=== PATIENT | male | born 1995 | race Caucasian/White ===

== ENCOUNTER 2023-02-02 16:39 | Emergency (ER) | payer OTHER, SELFPAY ==
[2023-02-02 16:40] VITALS: BP 141/100; PULSE 83; RESP 18; TEMP 36.3; O2SAT 98; BMI 33.4
--- NOTE | 2023-02-02 17:18 | EKG12_ITS ---
Test Reason : CHST PAIN Blood Pressure : / mmHG Vent. Rate : 086 BPM Atrial Rate : 086 BPM P-R Int : 148 ms QRS Dur : 092 ms QT Int : 356 ms P-R-T Axes : 047 051 038 degrees QTc Int : 426 ms Normal sinus rhythm with sinus arrhythmia Normal ECG Confirmed by ALONDRA PINTO, MIRIAN ([id number]), editor newspaper GRACE ENRIQUEZ ([id number]) on 02/07/2023 7:56:55 AM Referred By: Confirmed By:MIRIAN CANTU MD
--- NOTE | 2023-02-02 17:18 | EDS_ITS ---
HPI History of Present Illness Chief Complaint: Chest Pain Informant: patient and spouse/S.O. Narrative Narrative: Patient presents after an episode of chest discomfort. Patient has had an episode like this in the past with no known cause after evaluation. He was feeling fine. He went upstairs to play guitar which he does daily. He states the strap of the guitar was rubbing on the right side of his chest. He states he really never had chest pain but it just felt like the right side of his chest was bal[place]. Like the strap was putting more pressure or rubbing more than normal. Again he never had chest pain with this. Other than those symptoms he had no other symptoms such as nausea vomiting shortness of breath or diaphoresis at the time. Shortly after this. He was getting out of the shower. He then got lightheaded. He felt like he turned white. He broke out into a sweat. He thought he was going to pass out. This lasted for a few minutes. After that he was tired and took a nap. He is now feeling better. He still feels like the right side of his chest is baltazar than the left but no pain. He did not actually have any chest pain during the lightheaded episode as above. He is on Adderall but this is not new. He smokes medical or marijuana. He does not drink. He has no blood pressure diabetes cholesterol family history of heart disease. No recent travel surgery or immobilization personal or family history of DVT or PE. No hemoptysis cough or dyspnea. No leg pain or swelling. [facility] Medical History ADHD Fxyy-Nacvr-Fmxzdil disease, bilateral Home Medications dextroamphetamine-amphetamine 5 mg tablet (Adderall) 5 mg PO DAILY 02/02/23 [His tory Last Taken Unknown] Allergy/AdvReac Type Severity Reaction Status Date / Time No Known Allergies Allergy Verified 02/02/23 16:42 Social History Smoking Status: Current some day smoker tobacco type: cigarettes ROS ROS ED ROS Narrative A complete review of systems was performed and is negative except as documented in the history of present illness. Some specific details below. Constitutional: No recent fevers or chills. He felt fine until this event and he felt fine afterwards. EYE: No discharge, visual complaints, or pain. ENT: No difficulty swallowing. No swelling. No pain. No reflux symptoms. No history of reflux. CV: See history of present illness. Respiratory: Not short of breath or coughing. No hemoptysis. GI: No abdominal pain. No nausea vomiting diarrhea. No blood in stool. : No frequency dysuria or hematuria. Musculoskeletal: No recent trauma. No pains. No swelling. Skin: No rash. Nondiaphoretic. Neuro: No weakness or numbness. Endocrine: No polyuria or polydipsia. EXAM Physical Exam Narrative Exam Narrative: CONSTITUTIONAL: Patient is nontoxic in appearance. The patient looks comfortable. Work of breathing looks normal. HEENT: No notable trauma. Mucous membranes moist. No sinus tenderness. No indication of pain with swallowing. EYES: No conjunctival injection. No proptosis. NECK:No JVD. No stridor. CARDIOVASCULAR: Regular rate. Regular rhythm. No notable murmur. No JVD. Peripheral pulses are normal x4. RESPIRATORY: No respiratory distress. Breathing is unlabored. No wheezes. No rhonchi. No rales. No pain with a deep breath. He has mild discomfort or different sensation with palpation of the right pectoralis region. But I feel no mass or lymphadenopathy. No rash. No warmth or erythema. GASTROINTESTINAL: Not distended. Bowel sounds are normal. No tenderness. No guarding. No rebound. No palpable mass. No bruit is heard. GENITOURINARY: No tenderness over the bladder. No CVA tenderness. MUSCULOSKELETAL: Atraumatic. No peripheral edema. No cord. No tenderness along the deep venous system. No asymmetry. No distended veins. NEUROLOGICAL: Patient is alert and appropriate. No focal deficit noted. SKIN: No noted rashes. No diaphoresis. PSYCHIATRIC: Patient is calm. Mood is appropriate. Const Vital Signs: 02/02/23 16:40 02/02/23 16:53 02/02/23 17:18 Temperature 97.3 F L Temperature Source Temporal Pulse Rate 83 Respiratory Rate 18 Respiratory Effort Normal Non-Labored Blood Pressure 141/100 H Blood Pressure Mean 113 Pulse Ox 98 Oxygen Delivery Method Room Air Room Air 02/02/23 17:31 02/02/23 18:00 02/02/23 19:40 Temperature Temperature Source Pulse Rate 86 82 73 Respiratory Rate 21 H 26 H 20 H Respiratory Effort Blood Pressure 132/76 H 131/71 H 128/77 H Blood Pressure Mean 94 91 94 Pulse Ox 95 95 95 Oxygen Delivery Method Room Air Room Air Room Air MDM MDM MDM Narrative Medical decision making narrative: Patient's CBC is normal. Patient's electrolytes are normal. Patient's first troponin is normal at 7. Patient's repeat troponin has dropped to 6. My independent interpretation of the patient's single AP chest x-ray shows no acute process. Final reading is normal x-ray examination of the chest. Patient's symptoms are gone. He has had these before. He is a low risk. He is asymptomatic now. He has 2 negative troponins. I think he is safe for discharge. We have recommended follow-up. Lab Data Attestation: I reviewed the patient's lab results. Labs: Laboratory Results - last 24 hr 02/02/23 02/02/23 17:16 19:00 WBC 9.0 RBC 4.92 Hgb 14.3 Hct 43.6 MCV 88.6 MCH 29.1 MCHC 32.8 RDW Std Deviation 40.8 RDW Coeff of Rosina 12.6 Plt Count 194 MPV 9.2 Immature Gran % (Auto) 0.300 Neut % (Auto) 65.0 Lymph % (Auto) 23.2 [place] % (Auto) 10.6 H Eos % (Auto) 0.7 Baso % (Auto) 0.2 Absolute Neuts (auto) 5.9 Absolute Lymphs (auto) 2.09 Nucleated RBC % 0 Sodium 139 Potassium 3.8 Chloride 107 Carbon Dioxide 29.0 Anion Gap 3 L BUN 18 Creatinine 0.92 Estim Creat Clear Calc 125.05 Est GFR (MDRD) Af Amer 124 Est GFR (MDRD) Non-Af 102 BUN/Creatinine Ratio 19.5 Glucose 109 H Calcium 8.9 Troponin I High Sens 7 6 Radiography Diagnostic Testing: Clinical Impression(s) from Imaging Studies Chest X-Ray 02/02/23 17:30 IMPRESSION: Normal x-ray examination of the chest. Electronically Signed: Liborio Meza MD at 17:45 EDT Reading Location ID and State: [facility] / [place] Tel [phone], Service support , EKG Initial EKG: Comments: My independent interpretation of the patient's EKG shows a normal sinus rhythm with overall rate of 86. No ectopy. No acute ST elevation or depression. No sign of acute infarct or ischemia. MO, QRS duration and QTc are normal. Discharge Plan Triage Chief Complaint: Chest Pain ED Provider: Chencho Ruiz Dx/Rx/DC Orders Clinical Impression: Chest pain Instructions: ED Pain, Acute, Uncertain Cause Prescriptions: No Action dextroamphetamine-amphetamine [Adderall] 5 mg tablet 5 mg PO DAILY Primary Care Provider: Can Reynolds Referrals: Can Reynolds MD [Primary Care Provider] - 3-5 Days Disposition Disposition: Home, Self Care Discharge Date/Time: 02/02/23 20:01
--- NOTE | 2023-02-02 17:30 | RAD_ITS ---
STUDY: X-RAY CHEST REASON FOR EXAM: Male, 28 years old. chest pain TECHNIQUE: AP COMPARISON: None. FINDINGS: The lungs are clear and expanded. There is no demonstrated pleural abnormality. Normal size heart. Normal mediastinum and den. Normal visualized pulmonary arteries. Normal visualized aortic arch and descending thoracic aorta. Normal visualized thoracic spine. Normal visualized ribs, clavicles, and shoulders. There is no demonstrated abnormality of the visualized soft tissue structures of the upper abdomen. RAD/Chest 1 View (Portable) IMPRESSION: Normal x-ray examination of the chest. Electronically Signed: Liborio Meza MD at 17:45 EDT ,
[2023-02-02 17:31] VITALS: BP 132/76; PULSE 86; RESP 21; O2SAT 95
[2023-02-02 17:40] LABS: Absolute Lymphocyte Count 2.09 X10^3/uL (0.83-4.51); Absolute Neutrophil Count 5.9 X10^3/uL (2.0-7.7); Basophil# 0.02 X10^3/uL; Basophil% 0.2 % (0-1); Eosinophil# 0.06 X10^3/uL; Eosinophils% 0.7 % (0-5); Hematocrit 43.6 % (40-54); Hemoglobin 14.3 g/dL (13.0-16.5); Lymphocyte # 2.09 X10^3/ul (0.83-4.51); Lymphocyte % 23.2 % (19-41); Mean Corp Hgb Conc 32.8 g/dL (32-36); Mean Corpuscular Hgb 29.1 pg (27.0-32.0); Mean Corpuscular Volume 88.6 fL (80-94); Mean Platelet Vol. 9.2 fl (6.2-12.0); Monocyte# 0.96 X10^3/uL; Monocyte% 10.6 % (0-10); NRBC Flagged by Analyzer 0 % (0-5); Neutrophil # 5.86 X10^3/uL (2.7-7.7); Platelet Count 194 K/mm3 (150-450); RBC Distribution Width CV 12.6 % (11.6-14.6); RBC Distribution Width SD 40.8 fl (35.1-43.9); Red Blood Count 4.92 M/mm3 (4.6-6.2)
[2023-02-02 17:48] LABS: Anion Gap 3 (5-15); BUN 18 mg/dL (7-18); BUN/Creat Ratio 19.5 RATIO (10-20); Calcium,Total 8.9 mg/dL (8.5-10.1); Chloride 107 mmol/L (98-107); Creatinine, Serum 0.92 mg/dL (0.70-1.30); EST Glomerular Filtration Rate 102 mL/min (>60); Est Glom Filt Rate - Afr Amer 124 mL/min (>60); Estimated Creatinine Clearance 125.05 ml/min; Glucose 109 mg/dL (74-106); Potassium 3.8 mmol/L (3.5-5.1); Sodium Level 139 mmol/L (136-145); Troponin-I HS (w/2H Reflex) 7 pg/mL (3.0-78.0)
[2023-02-02 18:00] VITALS: BP 131/71; PULSE 82; RESP 26; O2SAT 95
[2023-02-02 19:02] LABS: Reflex Troponin-HS? (from REC) Y
[2023-02-02 19:21] LABS: Troponin-I HS 6 pg/mL (3.0-78.0)
[2023-02-02 19:40] VITALS: BP 128/77; PULSE 73; RESP 20; O2SAT 95
== END 2023-02-02 20:01 | disposition home or self-care (01) ==
PROVIDERS: Emergency Provider Emergency Medicine; PCP Family Medicine; Visit Provider Emergency Medicine
DX: R07.9 Chest pain, unspecified (principal); F17.210 Nicotine dependence, cigarettes, uncomplicated; F90.9 Attention-deficit hyperactivity disorder, unspecified type; Z79.899 Other long term (current) drug therapy
CPT/HCPCS: 71045; 80048; 84484; 85025; 93005; 99284; A4216

== ENCOUNTER → 2023-06-26 | Outpatient (CLI) | payer OTHER, SELFPAY ==
[2023-06-26 18:39] LABS: Vitamin B12 445 pg/mL (211-911); Vitamin D,25 Hydroxy 26.6 ng/mL
--- OUTSIDE RECORDS SUMMARY | 2023-06-26 18:50 | XMS RPT_ITS | CCD ---
Author Name Unknown Address [address] [place] [address] Organization [facility] Care Team Providers Care Spool Salvager Name Role Phone Missael Abarca Attending Unavailable LISHNEVSKI, ALEXIA Referring Unavailable LISHNEVSKI, ALEXIA Primary Care Unavailable IMCA Referring Unavailable LISHNEVSKI, ALEXIA Primary Care Unavailable IMCA Referring Unavailable LISHNEVSKI, ALEXIA Primary Care Unavailable LISHNABISKI, ALEXIA Attending Unavailable IMCA Referring Unavailable Pending Provider Unavailable Unavailable Unavailable Unavailable Leighton Reynolds MD Primary Care Provider [phone] Leighton Reynolds MD Primary Care Provider Leighton Reynolds MD Primary Care Provider [phone] Unavailable Unavailable Amanuel Oneal Attending Unavailable Amanuel Oneal Referring Unavailable Pending, Provider Primary Care Unavailable MARIEL UP Attending Unavailabl e MARIEL UP Referring Unavailabl e Pending, Provider Primary Care Unavailable Amanuel Oneal Attending Unavailable Pending, Provider Primary Care Unavailable Leighton Reyonlds MD Primary Care Provider Leighton Reynolds Primary Care Provider REUBEN, ALEXJOE Attending Unavailable TOROI, ALEXIA Referring Unavailable REUBEN, ALEXIA Primary Care Unavailable LEIGHTON REYNOLDS Attending Unavailable LEIGHTON REYNOLDS Primary Care Unavailable LEIGHTON REYNOLDS Unavailable LEIGHTON REYNOLDS Primary Care Unavailable Allergies Allergy Classification Reported Allergen(s) Allergy Type Date of Onset Reaction(s) Facility (20 sources) Morphine; Translations: [MORPHINE] Drug Allergy 0 Intolerance, Nausea And Vomiting [facility] Repository Medications Current Medications Medication Drug Class(es) Dates Sig (Normalized) Sig (Original) amoxicillin 875 mg / clavulanate 125 mg oral tablet (1 source) Penicillin-class Antibacterial Start: 04-05-2022 End: 04-12-2022 take 1 tablet by mouth every twelve hours Amoxicillin-Pot Clavulanate 875-125 MG Oral Tablet TAKE 1 TABLET EVERY 12 HOURS UNTIL GONE. Quantity: 14 Refills: 0 Ordered: 05-Apr-2022 Mariel Up DO Start : 05-Apr-2022 End : 12-Apr-2022 Active amphetamine aspartate 1.25 mg / amphetamine sulfate 1.25 mg / dextroamphetamine saccharate 1.25 mg / dextroamphetamine sulfate 1.25 mg oral tablet (20 sources) Central Nervous System Stimulant Start: 05-23-2023 End: 06-22-2023 take 1 tablet by mouth once daily as needed dextroamphetamin e-amphetamine (ADDERALL) 5 mg tablet Indications: Attention deficit disorder (ADD) in adult Take 1 tablet by mouth once daily as needed for up to 30 days. 30 tablet 0 05/23/2023 06/22/2023 Active Completed/Discontinued Medications Medication Drug Class(es) Dates Sig (Normalized) Sig (Original) Amphetamine / Dextroamphetamine (2 sources) Central Nervous System Stimulant Adderall TABS Quantity: 0 Refills: 0 Ordered: 19-May-2021 DO Active Problems Active Problems Problem Classification Problem Date Documented Da te Episodic/Chronic Abdominal pain (6 sources) Left upper quadrant pain; Translations: [Unspecified abdominal pain] Onset: 9 Episodic Allergic reactions (2 sources) Allergy status to narcotic agent status; Translations: [Allergy status to narcotic agent status] Onset: 9 Episodic Contraceptive and procreative management (1 source) Patient encounter status; Translations: [Encounter for other general counseling and advice on procreation] Episodic Diabetes mellitus without complication (2 sources) Impaired fasting glucose; Translations: [Impaired fasting glucose] Onset: 3 Episodic Disorders usually diagnosed in infancy, childhood, or adolescence (20 sources) Adult attention deficit hyperactivity disorder ; Translations: [Other specified behavioral and emotional disorders with onset usually occurring in childhood and adolescence] Onset: 1 Chronic Malaise and fatigue (1 source) Fatigue; Translations: [Other fatigue] 06-08-2023 Episodic Other acquired deformities (2 sources) Other specified acquired deformities of left thigh; Translations: [Other specified acquired deformities of left thigh] Onset: 9 Episodic Other aftercare (2 sources) Marijuana user; Translations: [Other accountant assistant (current) drug therapy] Onset: 3 01-23-2023 Episodic Other aftercare (2 sources) Other accountant assistant (current) drug therapy; Translations: [Other skilled nursing (current) drug therapy] Onset: 3 Episodic Other bone disease and musculoskeletal deformities (2 sources) 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], left leg; Translations: [Juvenile osteochondrosis of head of femur, left leg] Onset: 9 Chronic Other bone disease and musculoskeletal deformities (20 sources) Juvenile osteochondrosis of lower extremity; Translations: [Juvenile osteochondrosis of head of femur [Fjfa-Nuqec-Aciaqex], left leg] Onset: 3 07-02-2018 Chronic Other connective tissue disease (2 sources) Hand pain; Translations: [Pain in limb] Episodic Other nutritional; endocrine; and metabolic disorders (20 sources) Obese class I; Translations: [Obesity, unspecified] Onset: 2 06-24-2021 Chronic Other skin disorders (1 source) Lesion of skin of foot; Translations: [Unspecified disorder of skin and subcutaneous tissue] Episodic Phlebitis; thrombophlebitis and thromboembolism (2 sources) Phlebitis; Translations: [Phlebitis and thrombophlebitis of unspecified site] Episodic Unclassified (2 sources) Juvenile osteochondrosis of head of femur (lkin-zfkve-awtuucg), left leg Onset: 9 Past or Other Problems Problem Classification Problem Date Documented Da te Episodic/Chronic Mood disorders (2 sources) Mood disorders Onset: 01-23-2023 01-23-2023 Other connective tissue disease (4 sources) Pain in right hand; Translations: [Pain in right hand] Onset: 05-19-2021 Episodic Results Test Name Value Interpretation Reference Range Facil ity Vital Signs Date Time Vital Sign Value Performing Clinician Faci lity 01-23-2023 14:59-0400 Body height 180.3 cm Dedra Enriquez MD Work Phone: [facility] [employer] 01-23-2023 14:59-0400 Body mass index (BMI) [Ratio] 32.99 kg/m2 Dedra Enriquez MD Work Phone: [facility] [employer] 01-23-2023 14:59-0400 Body temperature 97 [degF] Dedra Enriquez MD Work Phone: [facility] [employer] 01-23-2023 14:59-0400 Body weight 107.28 kg Dedra Enriquez MD Work Phone: [facility] [employer] 01-23-2023 14:59-0400 Diastolic blood pressure 70 mm[Hg] Dedra Enriquez MD Work Phone: [facility] [employer] 01-23-2023 14:59-0400 Heart rate 65 /min Dedra Enriquez MD Work Phone: [facility] [employer] 01-23-2023 14:59-0400 Systolic blood pressure 135 mm[Hg] Dedra Enriquez MD Work Phone: [facility] [employer] 04-05-2022 17:51-0500 Body mass index (BMI) [Ratio] 31.87 kg/m2 Marielprachi Up DO Work Phone: [facility] Work Phone: 04-05-2022 17:51-0500 Body surface area Derived from formula 2.28 m2 Mariel Up DO Work Phone: [facility] Work Phone: 04-05-2022 17:51-0500 Body temperature 98.2 [degF] Marielprachi Up DO Work Phone: [facility] Work Phone: 04-05-2022 17:51-0500 Body weight 106.6 kg Marielprachi HunterAnnel DO Work Phone: [facility] Work Phone: 04-05-2022 17:51-0500 Diastolic blood pressure 63 mm[Hg] Mariel Annel DO Work Phone: [facility] Work Phone: 04-05-2022 17:51-0500 Heart rate 67 /min Mariel Annel DO Work Phone: [facility] Work Phone: 04-05-2022 17:51-0500 Respiratory rate 16 /min Mariel Annel DO Work Phone: [facility] Work Phone: 04-05-2022 17:51-0500 SaO2% (BldA) [Mass fraction] 98 % Marielkim HunterAnnel DO Work Phone: [facility] Work Phone: 04-05-2022 17:51-0500 Systolic blood pressure 131 mm[Hg] Marielkim HutnerAnnel DO Work Phone: [facility] Work Phone: 04-05-2022 17:51-0500 0 1 Marielkim HunterAnnel DO Work Phone: [facility] Work Phone: Encounters Encounter Date Encounter Type Care Provider Facility Start: 06-07-2023 Get Medical Advice Leighton jacques MD Work Phone: [facility] Procedures Date Procedure Procedure Detail Performing Clinician Start: 01-23-2023 Adult depression screening assessment Dedra Enriquez MD Work Phone: Start: 10-14-2021 Adult depression screening assessment Leighton Reynolds MD Work Phone: Start: 09-04-2020 Adult depression screening assessment Halle Ramirez APRN.CNP Work Phone: Plan of Treatment Date Care Activity Detail Author Start: 2043 Zoster Vaccines (1 of 2) Zoste r Vaccines (1 of 2) [facility] Start: 07-02-2028 DTaP/Tdap/Td Vaccine s (7 - Td or Tdap) DTaP/Tdap/Td Vaccines (7 - Td or Tdap) [facility] Start: 07-02-2028 Urine microalbumin profile [facility] Start: 05-15-2024 Covid-19 Vaccine (#1) Covid-19 Vacci ne (#1) [facility] Immunizations Immunization Date Immunization Notes Care Provider Fa [facility] 03-24-2020 influenza virus vaccine, unspecified formulation Leighton Reynolds MD Work Phone: [facility] 12-18-2018 hepatitis A vaccine, adult dosage Hallepatrick Ramirez VICE PRESIDENT OF TALENT MANAGEMENT.PHARMACEUTICAL WORKER Work Phone: [facility] 07-02-2018 tetanus toxoid, redu rafy diphtheria toxoid, and acellular pertussis vaccine, adsorbed Hallepatrick Ramirez VICE PRESIDENT OF TALENT MANAGEMENT.PHARMACEUTICAL WORKER Work Phone: [facility] 02-25-2002 influenza, seasonal, injectable Halle Ramirez VICE PRESIDENT OF TALENT MANAGEMENT.PHARMACEUTICAL WORKER Work Phone: [facility] 02-25-2002 influenza virus vaccine, unspecified formulation Dedra Enriquez MD Work Phone: [facility] 01-18-2001 measles, mumps and rubella virus vaccine Halle Carolina Ramirez VICE PRESIDENT OF TALENT MANAGEMENT.PHARMACEUTICAL WORKER Work Phone: [facility] 08-29-2000 diphtheria, tetanus toxoids and acellular pertussis vaccine, unspecified formulation Halle Ramirez VICE PRESIDENT OF TALENT MANAGEMENT.PHARMACEUTICAL WORKER Work Phone: [facility] 08-29-2000 poliovirus vaccine, inactivated Hallemagali Ramirez VICE PRESIDENT OF TALENT MANAGEMENT.PHARMACEUTICAL WORKER Work Phone: [facility] 12-07-1995 diphtheria, tetanus toxoids and acellular pertussis vaccine, unspecified formulation Halle De Pazz James VICE PRESIDENT OF TALENT MANAGEMENT.PHARMACEUTICAL WORKER Work Phone: [facility] 12-07-1995 haemophilus influenz ae type b vaccine, conjugate unspecified formulation Halle Carolinarossy Ramirez VICE PRESIDENT OF TALENT MANAGEMENT.PHARMACEUTICAL WORKER Work Phone: [facility] 12-07-1995 measles, mumps and rubella virus vaccine Halle Carolinarossy Ramirez VICE PRESIDENT OF TALENT MANAGEMENT.PHARMACEUTICAL WORKER Work Phone: [facility] 1993 diphtheria, tetanus toxoids and pertussis vaccine Halle Carolina James VICE PRESIDENT OF TALENT MANAGEMENT.PHARMACEUTICAL WORKER Work Phone: [facility] 1993 haemophilus influenz ae type b vaccine, conjugate unspecified formulation Halle Carolina James VICE PRESIDENT OF TALENT MANAGEMENT.PHARMACEUTICAL WORKER Work Phone: [facility] 1993 hepatitis B vaccine, pediatric or pediatric/adolescent dosage Halle Carolina James VICE PRESIDENT OF TALENT MANAGEMENT.PHARMACEUTICAL WORKER Work Phone: [facility] 1993 poliovirus vaccine, unspecified formulation Halle Carolina James VICE PRESIDENT OF TALENT MANAGEMENT.PHARMACEUTICAL WORKER Work Phone: [facility] 1993 diphtheria, tetanus toxoids and pertussis vaccine Halle Carolina James VICE PRESIDENT OF TALENT MANAGEMENT.PHARMACEUTICAL WORKER Work Phone: [facility] 1993 haemophilus influenz ae type b vaccine, conjugate unspecified formulation Halle Carolina James VICE PRESIDENT OF TALENT MANAGEMENT.PHARMACEUTICAL WORKER Work Phone: [facility] 1993 poliovirus vaccine, unspecified formulation Halle Carolina Jamse VICE PRESIDENT OF TALENT MANAGEMENT.PHARMACEUTICAL WORKER Work Phone: [facility] 1993 diphtheria, tetanus toxoids and pertussis vaccine Halle Carolinajovanna Ramirez VICE PRESIDENT OF TALENT MANAGEMENT.PHARMACEUTICAL WORKER Work Phone: [facility] 1993 haemophilus influenz ae type b vaccine, conjugate unspecified formulation Halle Carolinarossy Ramirez VICE PRESIDENT OF TALENT MANAGEMENT.PHARMACEUTICAL WORKER Work Phone: [facility] 1993 poliovirus vaccine, unspecified formulation Halle Carolina James VICE PRESIDENT OF TALENT MANAGEMENT.PHARMACEUTICAL WORKER Work Phone: [facility] 1993 hepatitis B vaccine, pediatric or pediatric/adolescent dosage Halle Carolina James VICE PRESIDENT OF TALENT MANAGEMENT.PHARMACEUTICAL WORKER Work Phone: [facility] 1993 hepatitis B vaccine, pediatric or pediatric/adolescent dosage Halle Ramirez VICE PRESIDENT OF TALENT MANAGEMENT.PHARMACEUTICAL WORKER Work Phone: [facility] Payers Date Payer Category Payer Unknown [id number] 2021 Unknown 2021 Unknown [facility] [id number] 2021-Present [phone] [address] [place] [address] O [id number] 2018 Unknown MMO MMO [employer] [id number] 2018-Present [phone] [address] [place] [address] PPO [id number] 1993 Unknown [id number] 1993 Unknown [id number] 1993 Unknown [id number] 1993 Unknown [id number] 1993 Unknown [id number] 1993 Unknown [id number] 1993 Unknown [id number] Unknown [id number] Social History Date Type Detail Facility Start: 07-02-2018 End: 11-19-2022 Never a smoker Never a smoker [facility] Start: 07-02-2018 End: 05-15-2023 Tobacco smoking status NHIS Ex-smoker [facility] Work Phone: End: 07-02-2017 History of tobacco use Current smoker [facility] Work Phone: End: 07-02-2017 History of tobacco use Cigarette Smoker [facility] Work Phone: Start: 07-02-2018 End: 05-15-2023 Tobacco use and exposure Smokeless tobacco non-user [facility] Work Phone: Start: 06-24-2021 End: 05-15-2023 Alcohol intake Current drinker of alcohol (finding) [facility] Start: 09-04-2020 History SDOH Alcohol Frequency 1 [facility] Start: 09-04-2020 History SDOH Alcohol Std Drinks 98 [facility] Start: 07-02-2018 History SDOH Alcohol Comment social - once a week to every 2 weeks [facility] Start: 09-04-2020 History SDOH Social Connections Phone 4 [facility] Start: 09-04-2020 History SDOH Social Connections Get Together 2 [facility] Start: 09-04-2020 End: 05-03-2021 History SDOH Social Connections Meetings 3 [facility] Start: 09-04-2020 History SDOH Social Connections Living 8 [facility] Start: 09-04-2020 History SDOH Physica l Activity MPS 6 [facility] Start: 09-04-2020 History SDOH Financial 5 [facility] Start: 09-04-2020 Education 21 [facility] Start: 1995 Sex Assigned At Not on file [facility] Start: 09-28-2021 End: 10-14-2021 Exposure to SARS-CoV-2 (event) Not sure [facility] Work Phone: Start: 11-19-2022 End: 05-15-2023 Social connection and isolation panel [facility] In a typical week, h ow many times do you talk on the telephone with family, friends, or neighbors? Patient refused [facility] Are you now , , , , never or living with a partner? Refused [facility] (I/We) worried brian er (my/our) food would run out before (I/we) got money to buy more. DK or Refused [facility] In the past 12 month s, was there a time when you were not able to pay the mortgage or rent on time? No [facility] Start: 03-09-2021 Sexual orientation Heterosexual (jake trujillo) [facility] Tobacco smoking stat us MAIS Never smoked tobacco [facility] Start: 1995 Sex Assigned At Male [facility] Start: 04-13-2023 Gender identity Identifies as male gender (finding) [facility] Clinical Notes 05-18-2021 to 06-08-2023 Telephone Encounter - Diann Hernández Ma - 06/08/2023 4:47 PM ESTTelephone Encounter - Leighton Reynolds MD - 06/08/2023 12:14 PM ESTTelephone Encounter - Trudy Alonso Ma - 06/07/2023 6:56 PM EST Note Date & Type Note Facility 06-08-2023 Miscellaneous Notes Formattin g of this note might be different from the original. Patient Notified - Lab Orders mailed to patient as requested - placed in outgoing mail on 06/08/23. Diann LORENZO) Orders for the additional blood test were printed off and placed in my outbox Please mail to patient Please inform patient once they have been mailed Thanks Please review and advise documented in this encounter [facility] 05-30-2023 Miscellaneous Notes Formattin g of this note might be different from the original. Please review and advise documented in this encounter [facility] 05-15-2023 Note HNO ID: [id number] Author: ?, ?, ? Service: ? Author Type: ? Type: Progress Notes Filed: 05/15/2023 14:40 Note Text: Covid-19 Vaccine(1) Never done Influenza Vaccine(1) due on 12/23/2022 Depression Assessment due on 04/24/2023 Patient present for OV with elevated BP- BP was re-taken- Per provider. Provider in office notified of BP reading's. Patient denies dizziness, headache, nausea and blurred vision at this time. - [facility] 05-15-2023 Note HNO ID: [id number] Author: LEIGHTON REYNOLDS MD Service: ? Author Type: Physician Type: Progress Notes Filed: 05/15/2023 14:40 Note Text: Remy Bird is a 28 year old male presenting for physical exam: ADD: Patient does continue with the Adderall XR daily Does do the 5 mg dose if needed Tries to take just if needed Does still seem to work well for him Does try to take off days Has been getting more pain in the L hip He has not been able to exercise as much He has gained some weight Does use marijuana occasionally HISTORIES: PAST MEDICAL HISTORY Diagnosis Date ADD (attention deficit disorder) Dzst-Vrnln-Oavuxgx disease, left Proximal femoral focal deficiency, left PAST SURGICAL HISTORY Procedure Laterality Date KIT ARTHSCP FIX TGHTRP RT ACL Right 02/18/2011 reconstruction LEGG PERTHES ORTHOSIS LEGG PERTH SLG ORTHOPEDIC SURGERY HX Left broken femur, had ORIF FAMILY HISTORY Problem Relation Age of Onset Mental illness Father Possible Schizophrenia?? Heart Attack Maternal Grandfather Blood Clots Maternal Grandfather Hypertension No Family History Coronary Artery Disease No Family History Hyperlipidemia No Family History Diabetes No Family History Thyroid No Family History Factor 5 Leiden No Family History Blood Disease No Family History Stroke No Family History Rheumatologic disease No Family History Systemic Lupus Erythematosus No Family History Multiple Sclerosis No Family History Depression No Family History Bipolar disorder No Family History Schizophrenia No Family History Alzheimer's Disease No Family History Dementia No Family History Parkinson?s Disease No Family History Essential Tremor No Family History Tremor No Family History Aneurysm No Family History COPD No Family History Kidney Disease No Family History Cancer No Family History Social History: Social History Tobacco Use Smoking status: Former Packs/day: 0.25 Years: 10.00 Additional pack years: 0.00 Total pack years: 2.50 Types: Cigarettes Quit date: 07/02/2017 Years since quittin.8 Smokeless tobacco: Never Vaping Use Vaping Use: Never used Substance Use Topics Alcohol use: Yes Comment: social - once a week to every 2 weeks Drug use: Yes Types: Marijuana Comment: Daily Use- Per Patient (10/14/21) Social History Socioeconomic History Marital status: Highest education level: Some college, no degree Occupational History 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, 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 Tobacco Use Smoking status: Former Packs/day: 0.25 Years: 10.00 Additional pack years: 0.00 Total pack years: 2.50 Types: Cigarettes Quit date: 07/02/2017 Years since quittin.8 Smokeless tobacco: Never Vaping Use Vaping Use: Never used Substance and Sexual Activity Alcohol use: Yes Comment: social - once a week to every 2 weeks Drug use: Yes Types: Marijuana Comment: Daily Use- Per Patient (10/14/21) Sexual activity: Yes Partners: Female Other Topics Concerns: Occupational Exposure: No Hobby Hazards: No Sleep Concern: No Stress Concern: No Weight Concern: Yes Special Diet: No does try to eat healthy Exercise: Yes not as much exercise now Seat Belt: Yes Social History Narrative 2 dogs, [place] shepards Social Determinants of Health Financial Resource Strain: Unknown (11/19/2022) Overall Financial Resource Strain (CARDIA) Difficulty of Paying Living Expenses: Patient refused Food Insecurity: Unknown (11/19/2022) Hunger Vital Sign Worried About Running Out of Food in the Last Year: Patient refused Ran Out of Food in the Last Year: Patient refused Transportation Needs: Unknown (11/19/2022) PRAPARE - Transportation Lack of Transportation (Medical): Patient refused Lack of Transportation (Non-Medical): Patient refused Physical Activity: Sufficiently Active (11/19/2022) Exercise Vital Sign Days of Exercise per Week: 3 days Minutes of Exercise per Session: 90 min Stress: Unknown (11/19/2022) [employer] - Occupational Stress Questionnaire Feeling of Stress : Patient refused Social Connections: Unknown (11/19/2022) Social Connection and Isolation Panel [NHANES] Frequency of Communication with Friends and Family: Patient refused Frequency of Social Gatherings with Friends and Family: Patient refused Attends Gnosticism Services: Patient refused Active Member of Clubs or Organizations: Patient refused Attends Club or Organization Meetings: Patient refused Marital Status: Patient refused Housing Stability: Low Risk (11/19/2022) Housing Stability Vital Sign Unable to Pay for Housing in the Last Year: No Number of Places Lived in the Last Year: 1 Unstable Housing in the Last Year: No Allergies: ALLERGIES Allergen Reactions Morphine Intolerance Medications: dextroamphetamine-amphetamine (ADDERALL) 5 mg tablet Take 1 tablet by mouth once daily as nee (more content not included)... [facility] 02-14-2023 Miscellaneous Notes Formattin g of this note is different from the original. Last appointment: 11/19/22 Next appointment: 03/224 Pharmacy verified in [facility]. Refill(s) requested: Requested Prescriptions Pending Prescriptions Disp Refills dextroamphetamine-amphetamine (ADDERALL) 5 mg tablet 30 tablet 0 Sig: Take 1 tablet by mouth once daily as needed for up to 30 days. amphetamine-dextroamphetamine XR (ADDERALL XR) 15 mg capsule 30 capsule 0 Sig: Take 1 capsule by mouth once daily for 30 days. Order(s) pended. Please advise. Trudy Alonso Ma, TRANSIT AUTHOR[employer] POLICE OFFICER documented in this encounter [facility] 01-23-2023 Evaluation + Plan note Associated Problem(s): Medical marijuana use pdmp [facility] 01-23-2023 Miscellaneous Notes Associate d Problem(s): Medical marijuana use pdmp documented in this encounter [facility] 01-23-2023 History of Presen t illness Narrative Images from the original note were not included. [facility] [address] [facility] [address] Dept: [phone] Dept Loc: [phone] Reason for Visit: New Patient Assessment and Plan 1. Attention deficit disorder (ADD) in adult 2. Controlled substance agreement signed 3. Impaired fasting glucose --I explained to patient that we cannot provide controlled substances with patients taking medical marijuana -that is our specific office policy . Patient understood and this was then a no charge visit as a complete hx and physical / and plan were not completed Pdmp reviewed --Discussed controlled substance agreement and office visits required every 3 months-long with random drug screens at the office discretion --Discussed that if symptoms become uncontrolled or difficult to treat we will send to psychiatry -Discussed, did therapy and/or behavioral techniques to help with ADHD symptomatology in adults -Encouraged to avoid any sort of marijuana use even medical marijuana Obesity/overweight -- Patient was asked about his current diet and exercise habits, and personalized advice was provided regarding recommended lifestyle changes. Patient's comorbid health conditions associated with elevated BMI were discussed, as well as the likely benefits of weight loss. Educational materials for weight loss were provided. current treatment plan is effective, no change in therapy, orders and follow up as documented in EMR, lab results reviewed with patient, repeat labs ordered prior to next appointment, reviewed compliance with lifestyle measures, reviewed diet, exercise and weight control, very strongly urged to quit smoking, reviewed medications and side effects in detail Subjective New pt Main medical history is adult ADHD-last prescription for extended release Adderall for 50 mg capsules 30 days on December 30, 2022 along with short acting 30-day prescription of 5 mg tablet Patient was diagnosed by prior PCP -Dr. Reynolds in 2020-per notes reviewed -he stated that in middle school and high school he was unable to get homework done and was inattentive in class . Organization skills were lacking / and [facility] his prior left hip surgeries At home and at school had task difficulty he was able to pass however in high school it seemed to be months were worse he tried to go to college for 1 semester and HV[employer] school but could not pay attention in class. He thinks his issues probably started in grade school but his parents never pursued any diagnosis or medication At that time he was missing things at work and forgetting to do tasks on his job as well as irritability anger /frustration tolerance was low and this was causing him issues with anxiety.-He states he loves to play the guitar -was having a harder time staying focused on it and could sit still Was never treated for anxiety but felt very anxious as soon as took as the adderall xr and felt better right away He doesn't want higher doses Prior pcp dr blakely - [facility] --last visit was a telehealth visit on November 19, 2022== at that visit patient was on 15 mg extended release Adderall he only takes the 5 mg just if needed if he does something later in the day as he feels a drop off with the 15 mg after about 8 hours he does continue to skip some weekends -He also admits to marijuana use-medical marijuana on PDMP last refill was December 13 by a prescriber- 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 At one point he was doing [employer] He also has struggled with obesity most of his life--- lab review total cholesterol in 2019 was 173 triglycerides were 115 LDL was 106 HDL was 44, normal fasting sugar at that time and normal liver and kidney values Blood pressure tends to elevate while in office it appears that he has had blood pressures in the 130s over high 80s per chart review of care everywhere Patient had EKG in 2019 which showed normal sinus rhythm with early repolarization pattern noted on read from 2019 He also has struggled with infertility and his were discussing this with [employer] and he had some pulmonary testing which was normal-was referred to urology Review of Systems Constitutional: Negative for chills, fatigue and fever. HENT: Negative for congestion, ear pain and sore throat. Eyes: Negative for discharge and visual disturbance. Respiratory: Negative for cough, chest tightness, shortness of breath and wheezing. Cardiovascular: Negative for chest pain, palpitations and leg swelling. Gastrointestinal: Negative for abdominal pain, blood in stool, constipation, diarrhea, nausea and vomiting. Endocrine: Negative for cold intolerance, heat intolerance and polydipsia. Genitourinary: Negative for difficulty urinating, dysuria and hematuria. Musculoskeletal: Negative for arthralgias, back pain and gait problem. Skin: Negative for rash. Neurological: Negative for dizziness, tremors, numbness and headaches. Hematological: Negative for adenopathy. Psychiatric/Behavioral: Negative for self-injury, sleep disturbance and suicidal ideas. The patient is not nervous/anxious. Last 3 PHQ-2 Scores 01/23/2023 1456 Patient Health Questionnaire-2 Score: 0 Allergies Allergen Reactions Morphine Nausea And Vomiting Outpatient Medications Prior to Visit Medication Sig Dispense Refill amphetamine-dextroamphetamine (Adderall) 5 MG tablet Take 5 mg by mouth. amphetamine-dextroamphetamine XR (Adderall XR) 15 MG 24 hr capsule Take 15 mg by mouth in the morning. No facility-administered medications prior to visit. Health Maintenance Topic Date Due COVID-19 Vaccine (1) Never done Varicella Vaccines (1 of 2 - 2-dose childhood series) Never done Depression Screening Never done Influenza Vaccine (1) 12/23/2022 DTaP/Tdap/Td Vaccines (7 - Td or Tdap) 07/02/2028 Zoster Vaccines (1 of 2) 2043 HIB Vaccines Completed Hepatitis B Vaccines Completed IPV Vaccines Completed MMR Vaccines Completed HIV Screening Completed Hepatitis C Screening Completed Hepatitis A Vaccines Aged Out Meningococcal Vaccine Aged Out Rotavirus Vaccines Aged Out HPV Vaccines Aged Out Pneumococcal Vaccine: Pediatrics (0 to 5 Years) and At-Risk Patients (6 to 64 Years) Aged Out Objective BP 135/70 Pulse 65 Temp 36.1 C (97 F) Ht 5' 11 (1.803 m) Wt 236 lb 8 oz (107 kg) BMI 32.99 kg/m Physical Exam Data Reviewed and Summarized Last 3 PHQ-2 Scores 01/23/2023 1456 Patient Health Questionnaire-2 Score: 0 Labs: No results found for: WBC , HGB , HCT , PLT , TSH , PSA , INR , GLUF No results found for: NA , K , CL , CO2 , BUN , CREATININE , GLUCOSE , CALCIUM , PROT , BILITOT , ALKPHOS , AST , ALT , LABGLOM , AGRATIO , GLOB No results found for: CHLPL , CHOL No results found for: TRIG No results found for: HDL No results found for: LDLCALC No results found for: VLDL No results found for: CHOLHDLRATIO Imaging/Testing: No image results found. DEDRA ENRIQUEZ MD Pt asked if they have been to specialist,been in ER /hospitalized or had testing since last visit. no Patient was able to ambulate safely to the examination room. Provider was not notified of possible fall risk documented in this encounter [facility] 01-23-2023 Instructions Dedra Enriquez MD - 01/23/2023 2:30 PM EDT Images from the original note were not included. Weight Loss Diet About this topic There are many trendy weight loss diets that are popular today. Many of these diets can end up being more harmful than helpful. The healthiest way to lose weight is to burn more calories than you eat. A weight loss diet should help you have a healthy view of eating. It is NOT healthy to stop eating to try and lose weight. A good diet plan will help you cut down your food intake and make healthy choices. A healthy weight loss goal is 1 to 2 pounds (0.5 to 1 kg) per week. Reducing calories in your diet, burning calories through exercise, or both can help you lose weight. Combining a healthy diet with regular physical activity can help you get the best results. To cut calories in your diet you can: Switch from whole milk to 1% or skim milk. Switch from regular cheese to low-fat or fat-free cheese. Use healthier condiment choices: Fat-free or low-fat sour cream or salad dressings Hernandez butter Diet syrups or jellies over regular Try frozen yogurt as a dessert rather than eating ice cream. Skip the chips. Snack on carrots, vegetables, or fruit. If chips are a favorite of yours, try the baked style and watch portion size. Eat grilled, roasted, boiled, broiled, or baked meats. Avoid deep-frying. Choose skinless poultry, lean red meat, lean cuts of pork, and fish for good protein sources. Try flavored no-calorie stephens. Do not drink soda and juices that have many calories. Choose fruit instead of sweets. General Eating smaller meals more often may be helpful. This will keep you from overeating at your next meal. Also, eating meals slowly helps you feel full faster. If eating 3 meals is a part of your lifestyle, choose more lean proteins and higher fiber foods to fill you up at each meal. Do not skip meals. Most often if you skip a meal, you eat too much at the next meal. Eat smaller portions. Use a smaller plate or bowl for meals, and when you are eating out, eat half and take the rest home. Plan ahead. Plan your meals and grocery list before going to the store. Planning will keep you from getting meals from restaurants. Do not go to the grocery store hungry. You are more likely to buy snacks that are not good for you. Portion out snacks. When you are having a snack, instead of grabbing the whole bag, portion a small amount out to give yourself a stopping point. Drink water before and after your meals to help fill you up without the calories. When eating starchy foods, choose whole-grain products. These have a lot of fiber which will make you feel full. Fiber also helps lower cholesterol and helps with bowel function. If you need a helpful start, ask your doctor to send you to a dietitian for weight loss help. What will the results be? Losing excess weight will make your whole body healthier. You will have more energy for your daily activities and lower your risk for health problems. What lifestyle changes are needed? Stay active. Eating healthy is not always enough to lose weight. Burning calories by exercising is a big part of weight loss. What foods are good to eat? The farley is to watch your portion sizes. It is best to choose foods that are lower in fat and calories. Choose lean meats: Boneless, skinless chicken breast Pork loin 90% lean beef Lean turkey meat Fresh fish (not fried) Choose low-fat dairy products: 1% or skim milk Hernandez butter or margarine Low-fat or fat-free cheese Frozen yogurt or low-calorie ice cream Choose fresh fruits, vegetables, beans and lentils, and whole wheat products more often. Choose water to drink more often. Drink diet or no-calorie beverages when you want something other than water. Aim to get your calories from the foods you eat. Choose smart snacks: Fruits Vegetables Low-fat or nonfat yogurt Low-fat or no-fat cheese, such as cottage cheese Unsalted nuts Hard-boiled egg Hummus Guacamole Natural peanut butter Popcorn with no butter ? use pepper, garlic, or another spice to taste Whole grain crackers What foods should be limited or avoided? Limit high-fat, high-sodium, and high-calorie foods like: Fried foods Processed meats Whole-fat dairy products Candy, cookies, chips, pastries Sausage, pelaez, any full-fat meats Soda, juice Beer, wine, and mixed drinks (alcohol) Will there be any other care needed? What do I do first before trying to lose weight? Talk to your doctor and dietitian to see if you need to lose weight. Work with them to set your weight loss goals. If you have a chronic illness, such as high blood sugar or high blood pressure, ask a doctor or dietitian what diet and exercise is right for you. Ask your doctor about how much you are able to exercise and what type of exercise is good for you. Helpful tips Keep a food journal to help keep you on track. Join a support group. Tips for burning calories: If your workplace is near your house, choose to walk or bike to work instead of driving. Take 20-minute walks each day. Walk around during your lunch break. You will not only burn calories, but will raise your energy for the rest of the day. Take the stairs over the elevator. Join a gym or exercise class with a friend. Try to exercise 30 minutes a day for overall health. Three 10-minute sessions work too. Aim for 60 to 90 minutes a day to lose weight. Drink lots of water before, during, and after exercise. Where can I learn more? Academy of Nutrition and Dietetics https://www.eatright.org/healt h/weight-loss/mltg-ceezjq-saz- your-weight/fytp-vg-xqzdph-for -xqfctrf-iixhya-nxph Centers for Disease Control and Prevention https://www.cdc.gov/healthywei ght/healthy_eating/index.html Familydoctor.org https://familydoctor.org/nutri nexl-pkqkdl-lzed-zkya-byjx-lki -diets/ NHS https://www.nhs.uk/live-well/h ealthy-weight/15-eedz-mi-help- ogk-bbzy-tkkuou/?tabname=you-a au-zvcg-hkogrw Last Reviewed Date 2020-10-15 Consumer Information Use and Disclaimer This generalized information is a limited summary of diagnosis, treatment, and/or medication information. It is not meant to be comprehensive and should be used as a tool to help the user understand and/or assess potential diagnostic and treatment options. It does NOT include all information about conditions, treatments, medications, side effects, or risks that may apply to a specific patient. It is not intended to be medical advice or a substitute for the medical advice, diagnosis, or treatment of a health care provider based on the health care provider's examination and assessment of a patient s specific and unique circumstances. Patients must speak with a health care provider for complete information about their health, medical questions, and treatment options, including any risks or benefits regarding use of medications. This information does not endorse any treatments or medications as safe, effective, or approved for treating a specific patient. [employer] and its affiliates disclaim any warranty or liability relating to this information or the use thereof. The use of this information is governed by the Terms of Use, available at https://www.woltersOdnoklassnikiuwer.com/ en/know/clinical-effectiveness -terms Copyright Copyright 2021 [employer]. and its affiliates and/or licensors. All rights reserved. documented in this encounter [facility] 11-29-2022 Miscellaneous Notes Formattin g of this note is different from the original. Last appointment: 11/19/22 Next appointment: 05/15/23 Pharmacy verified in [facility]. Refill(s) requested: Requested Prescriptions Pending Prescriptions Disp Refills amphetamine-dextroamphetamine XR (ADDERALL XR) 15 mg biphasic capsule 30 capsule 0 Sig: Take 1 capsule by mouth once daily for 30 days. Order(s) pended. Please advise. Radha Roland MA, TRANSIT AUTHORITY POLICE OFFICER documented in this encounter [facility] 11-19-2022 Note HNO ID: [id number] Author: Leighton Reynolds MD Service: ? Author Type: Physician Type: Progress Notes Filed: 11/19/2022 9:57 AM Note Text: DISTANCE HEALTH VISIT This Team Access Model visit is a virtual encounter. It required patient-provider interaction for the medical decision making as documented below. I have communicated my name and active licensure. The patient's identity and physical location were verified at the time of this visit. Either the patient or their legal high school admissions representative has been informed of the risks and benefits of -- and alternatives to -- treatment through a remote evaluation and consents to proceed with the evaluation remotely. Remy Bird is a 27 year old male seen for ADD: He has been doing well on the adderall, We had increased the dose to 15 mg He had noticed a difference with this Was lasting longer and worked better He has still been feeling good He has no side effects He will take the 15 mg daily He will do the 5 mg just if needed He will take if he has something later in the day He will feel a drop off with 15 when it wears off He will skip on some weekends Overall patient is very happy with how things have been going HISTORY REVIEWED (electronic chart updated): - medical history - medications - allergies REVIEW OF SYSTEMS: As noted in HPI PHYSICAL EXAMINATION: VIDEO EXAM: (if done, performed via video enabled technology) GENERAL: alert and appropriate, in no distress, well-hydrated, well nourished, and happy, smiling, interactive ASSESSMENT/PLAN: 1. Attention deficit disorder (ADD) in adult - ICD9: 314.00, ICD10: F98.8 Continue with the Adderall 15 mg extended release daily and the 5 mg immediate release just as needed This regimen still continues to work very well for him He is able to concentrate and stay on task during the day No significant side effects Follow-up in 6 months for annual physical Leighton Reynolds MD [facility] 11-19-2022 History of Presen t illness Narrative DISTANCE HEALTH VISIT This Team Access Model visit is a virtual encounter. It required patient-provider interaction for the medical decision making as documented below. I have communicated my name and active licensure. The patient's identity and physical location were verified at the time of this visit. Either the patient or their legal high school admissions representative has been informed of the risks and benefits of -- and alternatives to -- treatment through a remote evaluation and consents to proceed with the evaluation remotely. Remy Bird is a 27 year old male seen for ADD: He has been doing well on the adderall, We had increased the dose to 15 mg He had noticed a difference with this Was lasting longer and worked better He has still been feeling good He has no side effects He will take the 15 mg daily He will do the 5 mg just if needed He will take if he has something later in the day He will feel a drop off with 15 when it wears off He will skip on some weekends Overall patient is very happy with how things have been going HISTORY REVIEWED (electronic chart updated): - medical history - medications - allergies REVIEW OF SYSTEMS: As noted in HPI PHYSICAL EXAMINATION: VIDEO EXAM: (if done, performed via video enabled technology) GENERAL: alert and appropriate, in no distress, well-hydrated, well nourished, and happy, smiling, interactive ASSESSMENT/PLAN: 1. Attention deficit disorder (ADD) in adult - ICD9: 314.00, ICD10: F98.8 Continue with the Adderall 15 mg extended release daily and the 5 mg immediate release just as needed This regimen still continues to work very well for him He is able to concentrate and stay on task during the day No significant side effects Follow-up in 6 months for annual physical Leighton Reynolds MD documented in this encounter [facility] 10-11-2022 Miscellaneous Notes Formattin g of this note is different from the original. [facility] Patient has been identified by name and date of : Yes Patient aware RX will be sent to pharmacy. No need to notify patient. Patient phones for refill(s): Requested Prescriptions Pending Prescriptions Disp Refills dextroamphetamine-amphetamine (ADDERALL) 5 mg tablet 30 tablet 0 Sig: Take 1 tablet by mouth once daily as needed for up to 30 days. amphetamine-dextroamphetamine XR (ADDERALL XR) 15 mg biphasic capsule 30 capsule 0 Sig: Take 1 capsule by mouth once daily for 30 days. Date of last office visit : 05/13/2022 Date of next office visit : 11/10/2022 Last 2 Encounter Wt Readings: Date: Wt: 05/13/2022 109.3 kg (241 lb) 08/20/2021 102.1 kg (225 lb) Not applicable Please advise. Robby Coley Ma documented in this encounter [facility] 09-02-2022 Miscellaneous Notes Formattin g of this note is different from the original. Last appointment: 05/13/22 Next appointment: 11/10/22 Pharmacy [facility] Refill(s) requested: Requested Prescriptions Pending Prescriptions Disp Refills dextroamphetamine-amphetamine (ADDERALL) 5 mg tablet 30 tablet 0 Sig: Take 1 tablet by mouth once daily as needed for up to 30 days. Order(s) pended. Please advise. Unique Calderon LPN documented in this encounter [facility] 07-25-2022 Miscellaneous Notes Formattin g of this note is different from the original. Pharmacy [facility] Patient has been identified by name and date of : Yes Patient aware RX will be sent to pharmacy. No need to notify patient. Patient phones for refill(s): Requested Prescriptions Pending Prescriptions Disp Refills dextroamphetamine-amphetamine (ADDERALL) 5 mg tablet 30 tablet 0 Sig: Take 1 tablet by mouth once daily as needed for up to 30 days. amphetamine-dextroamphetamine XR (ADDERALL XR) 15 mg 24 hr capsule 30 capsule 0 Sig: Take 1 capsule by mouth once daily for 30 days. Date of last office visit : 05/13/2022 Date of next office visit : 11/10/2022 Last 2 Encounter Wt Readings: Date: Wt: 05/13/2022 109.3 kg (241 lb) 08/20/2021 102.1 kg (225 lb) Not applicable Please advise. Rita Strange MA documented in this encounter [facility] 06-20-2022 Miscellaneous Notes Formattin g of this note might be different from the original. Please resend documented in this encounter [facility] 06-13-2022 Miscellaneous Notes Formattin g of this note is different from the original. Last appointment: 05/13/22 Next appointment: 11/10/22 Pharmacy verified [facility]. Refill(s) requested: Requested Prescriptions Pending Prescriptions Disp Refills dextroamphetamine-amphetamine (ADDERALL) 5 mg tablet 30 tablet 0 Sig: Take 1 tablet by mouth once daily as needed for up to 30 days. amphetamine-dextroamphetamine XR (ADDERALL XR) 15 mg 24 hr capsule 0 Sig: Take 1 capsule by mouth once daily for 30 days. Order(s) pended. Please advise. Trudy Alonso Ma, TRANSIT AUTHOR[employer] POLICE OFFICER documented in this encounter [facility] 05-09-2022 Miscellaneous Notes Formattin g of this note is different from the original. Pharmacy [facility] Patient has been identified by name and date of : Yes Patient aware RX will be sent to pharmacy. No need to notify patient. Patient phones for refill(s): Requested Prescriptions Pending Prescriptions Disp Refills amphetamine-dextroamphetamine XR (ADDERALL XR) 10 mg 24 hr capsule 30 capsule 0 Sig: Take 1 capsule by mouth once daily for 30 days. dextroamphetamine-amphetamine (ADDERALL) 5 mg tablet 30 tablet 0 Sig: Take 1 tablet by mouth once daily as needed for up to 30 days. Date of last office visit : 06/24/2021 Date of next office visit : Visit date not found Last 2 Encounter Wt Readings: Date: Wt: 08/20/2021 102.1 kg (225 lb) 06/24/2021 107 kg (235 lb 12.8 oz) Not applicable Please advise. Suma Mane LPN documented in this encounter [facility] 12-13-2022 Miscellaneous Notes Formattin g of this note might be different from the original. Please call and inform patient that his/her prescriptions were refilled He/She will need to schedule follow-up appointment prior to any additional refills Please assist with scheduling Thanks TRMontez Last appointment: 10/14/21 Next appointment: n/a [facility] Refill(s) requested: Requested Prescriptions Pending Prescriptions Disp Refills amphetamine-dextroamphetamine XR (ADDERALL XR) 10 mg 24 hr capsule 30 capsule 0 Sig: Take 1 capsule by mouth once daily for 30 days. dextroamphetamine-amphetamine (ADDERALL) 5 mg tablet 30 tablet 0 Sig: Take 1 tablet by mouth once daily as needed for up to 30 days. Order(s) pended. Please advise. Trudy Alonso Ma, CMA documented in this encounter [facility] 02-28-2022 Miscellaneous Notes Formattin g of this note is different from the original. Patient requesting refills as follows: Last Prescribed: 01/25/22 Last O/V: 10/14/21 Next O/V : none Requested Prescriptions Pending Prescriptions Disp Refills amphetamine-dextroamphetamine XR (ADDERALL XR) 10 mg 24 hr capsule 30 capsule 0 Sig: Take 1 capsule by mouth once daily for 30 days. dextroamphetamine-amphetamine (ADDERALL) 5 mg tablet 30 tablet 0 Sig: Take 1 tablet by mouth once daily as needed for up to 30 days. Please review and advise. Diann Hernández Ma documented in this encounter [facility] 01-25-2022 Miscellaneous Notes Formattin g of this note is different from the original. Last appointment: 10/14/21 Next appointment: n/a Pharmacy verified in [facility]. Refill(s) requested: Requested Prescriptions Pending Prescriptions Disp Refills amphetamine-dextroamphetamine XR (ADDERALL XR) 10 mg 24 hr capsule 30 capsule 0 Sig: Take 1 capsule by mouth once daily for 30 days. dextroamphetamine-amphetamine (ADDERALL) 5 mg tablet 30 tablet 0 Sig: Take 1 tablet by mouth once daily as needed for up to 30 days. Order(s) pended. Please advise. Trudy Alonso Ma, CMA documented in this encounter [facility] 12-23-2021 Miscellaneous Notes Formattin g of this note is different from the original. [facility] Patient has been identified by name and date of : Yes Patient aware RX will be sent to pharmacy. No need to notify patient. Patient phones for refill(s): Requested Prescriptions Pending Prescriptions Disp Refills amphetamine-dextroamphetamine XR (ADDERALL XR) 10 mg 24 hr capsule 30 capsule 0 Sig: Take 1 capsule by mouth once daily for 30 days. dextroamphetamine-amphetamine (ADDERALL) 5 mg tablet 30 tablet 0 Sig: Take 1 tablet by mouth once daily as needed for up to 30 days. Date of last office visit : 10/14/2021 Date of next office visit : Visit date not found Last 2 Encounter Wt Readings: Date: Wt: 08/20/2021 102.1 kg (225 lb) 06/24/2021 107 kg (235 lb 12.8 oz) Not applicable Please advise. Robby Coley Ma documented in this encounter [facility] 10-14-2021 Miscellaneous Notes Patient has [employer] insurance, referral has been placed. Please call patient and assist with scheduling appointment with urology He does need to see them for some infertility issues so not sure if this is a more specialized urologic referral. I did put that in as the reason Thanks documented in this encounter [facility] 10-14-2021 History of Presen t illness Narrative [facility] VISIT This Team Access Model visit is a virtual encounter. It required patient-provider interaction for the medical decision making as documented below. 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 HISTORY REVIEWED (electronic chart updated): - medical history - medications - allergies REVIEW OF SYSTEMS: As noted in HPI PHYSICAL EXAMINATION: VIDEO EXAM: (if done, performed via video enabled technology) GENERAL: alert and appropriate, in no distress, well-hydrated, well nourished and happy, smiling, interactive ASSESSMENT/PLAN: 1. Infertility counseling - ICD9: V26.49, ICD10: Z31.69 Was referred to urology - CONSULT TO UROLOGY Leighton Reynolds MD documented in this encounter [facility] 10-11-2021 Miscellaneous Notes Addended by: DAVIDA JIMENEZ on: 10/11/2021 04:33 PM Modules accepted: Orders Spoke to [facility] and canceled Rx. Please send new Rx to [facility] Pharmacy updated. Last appointment: 06/24/21 Next appointment: 10/14/21 [facility] Refill(s) requested: Pending Prescriptions Disp Refills DEXTROAMPHETAMINE-AMPHETAMINE 5 MG TABLET 30 tablet 0 Sig: Take 1 tablet by mouth once daily as needed for up to 30 days. ARPIT Class: C-II ALBARO: No Order(s) pended. Please advise. Trudy Alonso Ma, CMA documented in this encounter [facility] 10-09-2021 Miscellaneous Notes Patient requesting refills as follows: Last Prescribed: 08/12/21 Last O/V: 06/24/21 Next O/V : 10/14/21 Pending Prescriptions Disp Refills DEXTROAMPHETAMINE-AMPHETAMINE ER 10 MG 24HR CAPSULE,EXTEND RELEASE 30 capsule 0 Sig: Take 1 capsule by mouth once daily for 30 days. ARPIT Class: C-II ALBARO: No Please review and advise. Diann Hernández Ma 06/24/21 documented in this encounter [facility] 08-11-2021 Miscellaneous Notes Last appointment: 06-24-21 Next appointment: na [facility] Refill(s) requested: Pending Prescriptions Disp Refills DEXTROAMPHETAMINE-AMPHETAMINE ER 10 MG 24HR CAPSULE,EXTEND RELEASE 30 capsule 0 Sig: Take 1 capsule by mouth once daily for 30 days. ARPIT Class: C-II ALBARO: No Order(s) pended. Please advise. Lydia Liu MA, TRANSIT AUTHORITY POLICE OFFICER documented in this encounter [facility] 08-10-2021 Miscellaneous Notes Duplicate. Refilled documented in this encounter [facility] 08-06-2021 Miscellaneous Notes Pharm[facility] Patient has been identified by name and date of : Yes Patient aware RX will be sent to pharmacy. No need to notify patient. Patient phones for refill(s): Pending Prescriptions Disp Refills DEXTROAMPHETAMINE-AMPHETAMINE 5 MG TABLET 30 tablet 0 Sig: Take 1 tablet by mouth once daily as needed for up to 30 days. ARPIT Class: C-II ALBARO: No DEXTROAMPHETAMINE-AMPHETAMINE ER 10 MG 24HR CAPSULE,EXTEND RELEASE 30 capsule 0 Sig: Take 1 capsule by mouth once daily for 30 days. ARPIT Class: C-II ALBARO: No Date of last office visit : 06/24/2021 Date of next office visit : Visit date not found Last 2 Encounter Wt Readings: Date: Wt: 06/24/2021 107 kg (235 lb 12.8 oz) 06/04/2020 107.5 kg (237 lb) Not applicable Please advise. Suma Mane LPN documented in this encounter [facility] 05-18-2021 History of Presen t illness Narrative Patient is a 26-year-old male with a chief complaint of right hand pain since yesterday. Patient reports he was doing jujitsu when he hyperextended his right index finger. Patient reports that his pain is sharp and patient rates it as 4-5/10 and is worsening.Patient denies any OTC treatment. Denies any prior right hand injury. Patient denies any fevers or chills. Patient denies any coughs wheezing chest pain or shortness of breath. Patient denies any nausea vomiting or diarrhea. [facility] Work Phone: documented in this encounter [facility] note* Diagnosis Attention deficit disorder (ADD) in adult documented in this encounter [facility] note* Diagnosis Attention deficit disorder (ADD) in adult documented in this encounter [facility] note* Diagnosis Attention deficit disorder (ADD) in adult documented in this encounter [facility] note* Diagnosis Infertility counseling- Primary Other procreative management counseling and advice documented in this encounter [facility] note* Diagnosis Attention deficit disorder (ADD) in adult documented in this encounter [facility] note* Diagnosis Attention deficit disorder (ADD) in adult documented in this encounter [facility] note* Diagnosis Attention deficit disorder (ADD) in adult documented in this encounter [facility] note* Diagnosis Attention deficit disorder (ADD) in adult- Primary documented in this encounter [facility] note* Diagnosis Attention deficit disorder (ADD) in adult- Primary documented in this encounter [facility] note* Diagnosis Attention deficit disorder (ADD) in adult documented in this encounter [facility] note* Diagnosis Obesity, Class I, BMI 30-34.9- Primary Obesity, unspecified documented in this encounter [facility] note* Diagnosis Fatigue, unspecified type- Primary [facility]* 27-year-old male presents for evaluation of a possible skin infection of his left foot. Patient states that he is concerned about possibly impetigo. He does do martial arts and is grappling on the mats. States that he noticed this a couple days ago. Will start out as a small little blister and thena scab will form. He is only noticed it on his left foot. No other rash. No history of herpes * ROS: 7 body systems reviewed and otherwise negative unless dictated in the history of present illness. 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 Reason for Referral Specialty Diagnoses / Procedures Referred By [place] hammer Referred To Contact Urology Diagnoses Infertility counseling Procedures CONSULT TO UROLOGY OFFICE/OUTPATIENT NEW HIGH MDM 60-74 MINUTES OFFICE/OUTPATIENT NEW MODERATE MDM 45-59 MINUTES Leighton Reynolds MD [address] [place] [address] [place] [address] Referral ID Status Reason Start Date Expiration Date V isits Requested Visits Authorized [id number] Denied PCP Requested Referral 10/14/2021 10/14/2022 1 0 Additional Source Comments (unrecognized sect ion and content) No Status Records FoundNo Status Records FoundNo Status Records FoundNo Status Records FoundNo Status Records FoundNo Status Records FoundNo Status Records FoundNo Status Records Found INFORMATION SOURCE (unrecogn ized section and content) DATE CREATED AUTHOR AUTHOR'S ORGANIZ ATION 08/06/2018 [facility] DATE CREATED AUTHOR AUTHOR'S ORGANIZ ATION 12/26/2018 [facility] DATE CREATED AUTHOR AUTHOR'S ORGANIZ ATION 08/23/2021 [facility] DATE CREATED AUTHOR AUTHOR'S ORGANIZ ATION 04/06/2022 [facility] DATE CREATED AUTHOR AUTHOR'S ORGANIZ ATION 04/06/2022 [facility] DATE CREATED AUTHOR AUTHOR'S ORGANIZ ATION 01/29/2023 [facility] DATE CREATED AUTHOR AUTHOR'S ORGANIZ ATION 05/16/2023 [facility] Source Comments (unrecognize d section and content) In the event this informatio n is protected by the Federal Confidentiality of Alcohol and Drug Abuse Patient Records regulations: The Federal rules restrict any use of the information to criminally investigate or prosecute any alcohol or drug abuse patient.[facility] the event this information is protected by the Federal Confidentiality of Alcohol and Drug Abuse Patient Records regulations: The Federal rules restrict any use of the information to criminally investigate or prosecute any alcohol or drug abuse patient.[facility] the event this information is protected by the Federal Confidentiality of Alcohol and Drug Abuse Patient Records regulations: The Federal rules restrict any use of the information to criminally investigate or prosecute any alcohol or drug abuse patient.[facility] the event this information is protected by the Federal Confidentiality of Alcohol and Drug Abuse Patient Records regulations: The Federal rules restrict any use of the information to criminally investigate or prosecute any alcohol or drug abuse patient.[facility] the event this information is protected by the Federal Confidentiality of Alcohol and Drug Abuse Patient Records regulations: The Federal rules restrict any use of the information to criminally investigate or prosecute any alcohol or drug abuse patient.[facility] the event this information is protected by the Federal Confidentiality of Alcohol and Drug Abuse Patient Records regulations: The Federal rules restrict any use of the information to criminally investigate or prosecute any alcohol or drug abuse patient.[facility] the event this information is protected by the Federal Confidentiality of Alcohol and Drug Abuse Patient Records regulations: The Federal rules restrict any use of the information to criminally investigate or prosecute any alcohol or drug abuse patient.[facility] the event this information is protected by the Federal Confidentiality of Alcohol and Drug Abuse Patient Records regulations: The Federal rules restrict any use of the information to criminally investigate or prosecute any alcohol or drug abuse patient.[facility] the event this information is protected by the Federal Confidentiality of Alcohol and Drug Abuse Patient Records regulations: The Federal rules restrict any use of the information to criminally investigate or prosecute any alcohol or drug abuse patient.[facility] the event this information is protected by the Federal Confidentiality of Alcohol and Drug Abuse Patient Records regulations: The Federal rules restrict any use of the information to criminally investigate or prosecute any alcohol or drug abuse patient.[facility] the event this information is protected by the Federal Confidentiality of Alcohol and Drug Abuse Patient Records regulations: The Federal rules restrict any use of the information to criminally investigate or prosecute any alcohol or drug abuse patient.[facility] the event this information is protected by the Federal Confidentiality of Alcohol and Drug Abuse Patient Records regulations: The Federal rules restrict any use of the information to criminally investigate or prosecute any alcohol or drug abuse patient.[facility] the event this information is protected by the Federal Confidentiality of Alcohol and Drug Abuse Patient Records regulations: The Federal rules restrict any use of the information to criminally investigate or prosecute any alcohol or drug abuse patient.[facility] the event this information is protected by the Federal Confidentiality of Alcohol and Drug Abuse Patient Records regulations: The Federal rules restrict any use of the information to criminally investigate or prosecute any alcohol or drug abuse patient.[facility] the event this information is protected by the Federal Confidentiality of Alcohol and Drug Abuse Patient Records regulations: The Federal rules restrict any use of the information to criminally investigate or prosecute any alcohol or drug abuse patient.[facility] the event this information is protected by the Federal Confidentiality of Alcohol and Drug Abuse Patient Records regulations: The Federal rules restrict any use of the information to criminally investigate or prosecute any alcohol or drug abuse patient.[facility] the event this information is protected by the Federal Confidentiality of Alcohol and Drug Abuse Patient Records regulations: The Federal rules restrict any use of the information to criminally investigate or prosecute any alcohol or drug abuse patient.[facility] the event this information is protected by the Federal Confidentiality of Alcohol and Drug Abuse Patient Records regulations: The Federal rules restrict any use of the information to criminally investigate or prosecute any alcohol or drug abuse patient.[facility] the event this information is protected by the Federal Confidentiality of Alcohol and Drug Abuse Patient Records regulations: The Federal rules restrict any use of the information to criminally investigate or prosecute any alcohol or drug abuse patient.[facility] the event this information is protected by the Federal Confidentiality of Alcohol and Drug Abuse Patient Records regulations: The Federal rules restrict any use of the information to criminally investigate or prosecute any alcohol or drug abuse patient.[facility] the event this information is protected by the Federal Confidentiality of Alcohol and Drug Abuse Patient Records regulations: The Federal rules restrict any use of the information to criminally investigate or prosecute any alcohol or drug abuse patient.[facility] the event this information is protected by the Federal Confidentiality of Alcohol and Drug Abuse Patient Records regulations: The Federal rules restrict any use of the information to criminally investigate or prosecute any alcohol or drug abuse patient.[facility] the event this information is protected by the Federal Confidentiality of Alcohol and Drug Abuse Patient Records regulations: The Federal rules restrict any use of the information to criminally investigate or prosecute any alcohol or drug abuse patient.[facility] Reason for Visit (unrecogniz ed section and content) Reason Onset Date Comments Refill Request 08/11/2021 Reason Onset Date Comments Refill Request 10/08/2021 Reason Comments Telemedicine Reason Comments Appointment Reason Onset Date Comments Refill Request 12/22/2021 Reason Onset Date Comments Refill Request 01/24/2022 Reason Onset Date Comments Refill Request 02/26/2022 Reason Onset Date Comments Refill Request 04/04/2022 Reason Onset Date Comments Refill Request 05/06/2022 Reason Onset Date Comments Refill Request 06/13/2022 Reason Onset Date Comments Refill Request 06/20/2022 Reason Onset Date Comments Refill Request 07/25/2022 Reason Onset Date Comments Refill Request 09/02/2022 Reason Onset Date Comments Refill Request 10/11/2022 Reason Comments Telemedicine Reason Onset Date Comments Refill Request 11/29/2022 Reason Comments New Patient Reason Onset Date Comments Refill Request 02/14/2023 Care Teams (unrecognized sec tion and content) Spool Salvager Relationship Specialty Start Date End Date Leighton Reynolds MD [address] [place] [address] PCP - General Family Practice 03/20/19 Spool Salvager Relationship Specialty Start Date End Date Leighton Reynolds MD [address], [place] [id number] PCP - General Family Practice 03/20/19 Spool Salvager Relationship Specialty Start Date End Date Leighton Reynolds MD [address] [place] [address] PCP - General Family Practice 03/20/19 Spool Salvager Relationship Specialty Start Date End Date Leighton Reynolds MD [address] [place] [address] PCP - General Family Practice 03/20/19 Spool Salvager Relationship Specialty Start Date End Date Leighton Reynolds MD [address] [place] [address] PCP - General Family Practice 03/20/19 Spool Salvager Relationship Specialty Start Date End Date Leighton Reynolds MD [address] [place] [address] PCP - General Family Practice 03/20/19 Spool Salvager Relationship Specialty Start Date End Date Leighton Reynolds MD [address] [place] [address] PCP - General Family Practice 03/20/19 Spool Salvager Relationship Specialty Start Date End Date Leighton Reynolds MD [address] [place] [address] PCP - General Family Medicine 03/20/19 Spool Salvager Relationship Specialty Start Date End Date Leighton Reynolds MD [address] [place] [address] PCP - General Family Medicine 03/20/19 Spool Salvager Relationship Specialty Start Date End Date Leighton Reynolds MD [address] [place] [address] PCP - General Family Medicine 03/20/19 Spool Salvager Relationship Specialty Start Date End Date Leighton Reynolds MD [address] [place] [address] PCP - General Family Medicine 03/20/19 Spool Salvager Relationship Specialty Start Date End Date Leighton Reynolds MD [address] [place] [address] PCP - General Family Medicine 03/20/19 Spool Salvager Relationship Specialty Start Date End Date Leighton Reynolds MD [address] [place] [address] PCP - General Family Medicine 03/20/19 Spool Salvager Relationship Specialty Start Date End Date Leighton Reynolds [address] [place] [id number] PCP - General Family Medicine 01/23/23 Spool Salvager Relationship Specialty Start Date End Date Leighton Reynolds MD [address] [place] [id number] PCP - General Family Medicine 03/20/19 Spool Salvager Relationship Specialty Start Date End Date Leighton Reynolds MD [address] [place] [id number] PCP - General Family Medicine 03/20/19 FOR RECORDS PERTAINING TO PATIENTS WHO ARE OR HAVE BEEN ENROLLED IN A CHEMICAL DEPENDENCY/SUBSTANCEABUSE PROGRAM, SOME INFORMATION MAY BE OMITTED. This clinical summary was aggregated from multiple sources. Caution should be exercised in using it in the provision of clinical care. This summary normalizes information from multiple sources, and as a consequence, information in this document may materially change the coding, format and clinical context of patient data. In addition, data may be omitted in some cases. CLINICAL DECISIONS SHOULD BE BASED ON THE PRIMARY CLINICAL RECORDS. [facility]. provides no warranty or guarantee of the accuracy or completeness of information in this document.
[2023-06-26 18:55] LABS: ALB/GLOB Ratio 1.1 RATIO (0.9-2.4); AST(SGOT) 18 U/L (15-37); Alanine Aminotransfer ALT/SGPT 28 U/L (16-61); Alkaline Phosphatase 44 U/L (45-117); Anion Gap 7 (5-15); BUN 15 mg/dL (7-18); BUN/Creat Ratio 17.2 RATIO (10-20); Calcium,Total 8.9 mg/dL (8.5-10.1); Chloride 108 mmol/L (98-107); Cholesterol 148 mg/dL (200); Creatinine, Serum 0.87 mg/dL (0.70-1.30); EST Glomerular Filtration Rate 109 mL/min (>60); Est Glom Filt Rate - Afr Amer 132 mL/min (>60); Globulin 3.6 g/dL (2.2-4.2); Glucose 88 mg/dL (74-106); High Density Lipoprotein 38 mg/dL; Potassium 4.1 mmol/L (3.5-5.1); Protein, Total 7.6 g/dL (6.4-8.2); Sodium Level 140 mmol/L (136-145); Thyroid Stim Hormone (TSH) 1.92 uIU/mL (0.358-3.74); Triglycerides 56 mg/dL; Very Low Density Lipoprotein 11 mg/dL (5-40)
== END | disposition home or self-care (01) ==
PROVIDERS: PCP Family Medicine; Referring Provider Family Medicine; Visit Provider Family Medicine
DX: E66.9 Obesity, unspecified (principal); Z13.1 Encounter for screening for diabetes mellitus; Z13.220 Encounter for screening for lipoid disorders; Z68.34 Body mass index [BMI] 34.0-34.9, adult; R53.83 Other fatigue
CPT/HCPCS: 36415; 80053; 80061; 82306; 82607; 84443

== ENCOUNTER → 2023-07-10 | Outpatient (CLI) | payer OTHER, SELFPAY ==
--- NOTE | 2023-07-10 17:59 | MRI_ITS ---
STUDY: MRI LEFT KNEE REASON FOR EXAM: Male, 28 years old. Painful knee. Assess meniscus tear. TECHNIQUE: Standardized fat and water weighted pulse sequences were obtained in all 3 orthogonal planes. COMPARISON: Left knee radiographs dated 06/26/2023. FINDINGS: Normal medial meniscus. Normal hyaline cartilage of the medial femorotibial compartment. Normal medial femoral condyle and tibial plateau. There is a minimal grade I MCL sprain with periligamentous edema (coronal T2 series 8 image 16). Normal distal semimembranosus, gracilis and semitendinosus tendons. There is a suspected tiny partial radial tear of the posterior horn of the lateral meniscus (coronal T2 series 8 image 22). Normal hyaline cartilage of the lateral femorotibial compartment. Normal lateral femoral condyle and tibial plateau. Normal proximal tibiofibular articulation. Normal lateral collateral (fibular) ligament. Normal popliteus tendon. Normal biceps femoris tendon. Normal anterior cruciate ligament (ACL). Normal posterior cruciate ligament (PCL). Normal congruent patellofemoral articulation. Normal hyaline cartilage of the patellofemoral compartment. Normal medial and lateral patellar retinaculum. Normal quadriceps tendon. Normal patellar tendon. Normal Hoffa''s fat pad. There is a small joint effusion. There is a tiny popliteal cyst. The soft tissues are unremarkable. The otherwise visualized osseous structures are unremarkable. MRI/Lower Ext Joint Only (Routine) IMPRESSION: Suspected tiny partial radial tear of the posterior horn of the lateral meniscus. Minimal grade I MCL sprain. Small joint effusion, with a tiny popliteal cyst. Electronically Signed: Sidney Gallardo MD at 12:01 EDT ,
== END | disposition home or self-care (01) ==
PROVIDERS: PCP Family Medicine; Referring Provider Orthopaedic Surgery Sports Medicine; Visit Provider Orthopaedic Surgery Sports Medicine
DX: M25.562 Pain in left knee (principal)
CPT/HCPCS: 73721

== ENCOUNTER → 2023-10-09 | Outpatient (CLI) | payer OTHER, SELFPAY | END | disposition home or self-care (01) | PROVIDERS: PCP Family Medicine; Referring Provider Obstetrics & Gynecology Obstetrics; Visit Provider Obstetrics & Gynecology Obstetrics | DX: Z31.41 Encounter for fertility testing (principal) ==

== ENCOUNTER 2023-11-08 05:46 | Day surgery (SDC) | payer OTHER, SELFPAY ==
[2023-11-08] VITALS (10 sets, daily range): BP systolic 133–147; BP diastolic 75–96; PULSE 74–84; RESP 16; TEMP 36.3–36.6; O2SAT 96–100; BMI 35.6
--- NOTE | 2023-11-08 06:23 | PRE.ANES_ITS ---
ASA Classification* ASA Classification ASA Classification: 2 Assessment & Plan Anesthesia* Anesthesia Assessment Anesthesia Assessment: Discussed sedation and/or anesthesia options, risks, benefits, and alternatives with patient/parents/legal guardian/POA. Questions invited. The patient/parents/legal guardian/POA seems to understand and agrees to proceed with anesthesia plan. Reviewed the physical assessment, medical history, allergy history and patient home medications list prior to surgery/procedure/anesthetic and documented any changes. Performed airway and anesthesia risk assessments. Anesthesia Type Anesthesia Type: General Anesthesia Focused Assessment* Airway Assessment Mouth opens: >3 cm Mallampati Score: II Focused Labs Anesthesia Preop lab: CBC WBC 9.0 K/mm3 (4.4-11.0) 02/02/23 17:16 RBC 4.92 M/mm3 (4.6-6.2) 02/02/23 17:16 Hgb 14.3 g/dL (13.0-16.5) 02/02/23 17:16 Hct 43.6 % (40-54) 02/02/23 17:16 Plt Count 194 K/mm3 (150-450) 02/02/23 17:16 CHEMISTRY Potassium 4.1 mmol/L (3.5-5.1) 06/26/23 14:53 Sodium 140 mmol/L (136-145) 06/26/23 14:53 BUN 15 mg/dL (7-18) 06/26/23 14:53 Creatinine 0.87 mg/dL (0.70-1.30) 06/26/23 14:53 Glucose 88 mg/dL (74-106) 06/26/23 14:53 TSH 1.92 uIU/mL (0.358-3.74) 06/26/23 14:53 COAG Pre-Assessment Diagnosis/Proposed Procedure Planned Operative Procedure(s): LEFT KNEE ARTHROSCOPY, LATERAL MENISCUS PARTIAL MENISECTOMY, POSSIBLE REPAIR Anesthesia History Anesthesia History - pl sql programmer: Anesthesia History - pl sql programmer Hx Hospitalization No 10/30/23 09:38 Any Problems With Anesthesia No 10/30/23 09:38 Cholinesterase deficiency No 10/30/23 09:38 You/Your Family Experience No 10/30/23 09:38 fever (hyperthermia) with Relationship Recent Exposure to Contagious Disease Does patient have nerve No 10/30/23 09:38 stimulator Patient instructed to have device shut off --Does patient have Pacemaker or ICD? When Was Last Pacemaker Check QUESTION #4 FULL TEXT: You/Your Family Experience fever (hyperthermia) with Anesthesia Last Oral Intake Last Oral intake: Last Oral Intake NPO since Meds taken in AM with sips of water? Meds patient instructed to take am of surgery PONV PONV - pl sql programmer: PONV - pl sql programmer Female No 10/30/23 09:38 HX of Motion Sickness No 10/30/23 09:38 HX of N/V After Surgery No 10/30/23 09:38 Non-Smoker Yes 10/30/23 09:38 Duration of Surgery greater Yes 10/30/23 09:38 than 60 minutes Number of Risk Factors 2 10/30/23 09:38 PONV Score Moderate Risk 10/30/23 09:38 Height & Weight Height & Weight: Anesthesia: Height & Weight Height 5 ft 11 in 06/26/23 14:05 Respiratory Assessment Respiratory Assessment - pl sql programmer: Respiratory Tract Infection Hx - pl sql programmer Hx Respiratory Tract Infection No 10/30/23 09:38 STOP Sleep Apnea STOP Sleep Apnea - pl sql programmer: STOP Sleep Apnea - pl sql programmer Hx Hypertension No 10/30/23 09:38 Hx Sleep Apnea No 10/30/23 09:38 CPAP BIPAP Do you snore loudly (louder Yes 10/30/23 09:38 than talking or can be heard Do you often feel tired/ No 10/30/23 09:38 fatigued/ sleepy during daytime? Has anyone observed you stop Yes 10/30/23 09:38 breathing during sleep? STOP Results Positive 10/30/23 09:38 QUESTION #5 FULL TEXT : Do you snore loudly (louder than talking or can be heard through closed doors)? 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 Specify any problems Hx of Preganancy in last 3 N/A 10/30/23 09:38 Months Nurse Filling Out Transfusion SFRANTZ 10/30/23 09:38 & Questions: Date: 10/30/23 10/30/23 09:38 Time: 09:43 10/30/23 09:38 Patient unable to answer at this time (ie. confused, unrespo /Reproduction History /Reproductive History - pl sql programmer: /Reproductive Hx- pl sql programmer Hx Now No 10/30/23 09:38 Gestational Age (in weeks): EDC: Hx Hx Para Hx Section SAB No 10/30/23 09:38 Active Medications Active Medications: Current Medications Generic Name Dose Route Start Last Admin Trade Name Freq PRN Reason Stop Dose Admin Cefazolin Sodium 2 gm/ Sodium 110 mls @ 150 mls/hr 11/08/23 07:30 Chloride IV 11/08/23 08:13 PREOP ONE Lactated Ringer's 1,000 mls @ 15 mls/hr 11/08/23 06:15 IV .Q48H [place] PFSH Medical History Marijuana use Heartburn Former smoker Effusion, left knee Tear of medial collateral ligament of left knee Tear of lateral meniscus of left knee Left knee pain Dcfb-Uwkno-Sfgyqfq disease, bilateral ADHD Home Medications ?Medication ?Instructions ?Recorded ?Last Taken ?Type dextroamphetamine-amphetamine 5 mg 5 mg PO DAILY PRN ADHD 06/26/23 Unknown History tablet (Adderall) dextroamphetamine-amphetamine ER 15 mg PO DAILY 06/26/23 Unknown History 15 mg 24hr capsule,extend release Allergy/AdvReac Type Severity Reaction Status Date / Time morphine Allergy Vomiting Verified 10/30/23 09:27 Family History Grandfather Heart disease Maternal- Heart Attack Surgical History History of repair of ACL History of anterior cruciate ligament surgery History of hip surgery Social History household members: spouse Smoking Status: Never smoker alcohol intake: never substance use type: marijuana Review of Systems (Anesthesia) ROS Narrative System reviewed and no additional complaints, except as documented.
[2023-11-08] MEDS: Lactated Ringers 1,000 ML 15 ML IV (06:45)
--- NOTE | 2023-11-08 07:06 | PCM.HP.STD ---
HPI - General HPI Narrative KEYSHA GRANT, is a 28 M who presents for left knee arthroscopy, lateral meniscus partial meniscectomy, possible repair. no change to h and p. left knee marked. rab, post op instructions based on intra op decision explained and narcotic counselling. will proceed, no further questions or concerns. here with his SO. MR#: [id number] Acct: [id number] Name: KEYSHA GRANT Rep #: [id number] : 1995 Provider: Dr. Claus Bar MD Age/Sex: 28/M Location[place] [facility] [place] Status: Signed Intake Vital Signs 06/25/2413:05 Height 5 ft 11 in Weight: 252 lb 6 oz BMI 35.2 Intake Visit Reasons: LEFT KNEE Accompanied by: Self Is patient in pain?: Yes Pain scale (1-10): 4 Allergies morphine Allergy (Verified 07/17/23 09:26) Vomiting Medications dextroamphetamine-amphetamine 5 mg tablet (Adderall) 5 mg PO DAILY PRN 06/26/23 [History Confirmed 07/17/23] dextroamphetamine-amphetamine ER 15 mg 24hr capsule,extend release 15 mg PO DAILY 06/26/23 [History Confirmed 07/17/23] PFSH Medical History (Updated 07/17/23 @ 09:39 by Claus Bar MD) ADHD Effusion, left knee Left knee pain Jcap-Jxdxt-Goartmm disease, bilateral Tear of lateral meniscus of left knee Tear of medial collateral ligament of left knee Surgical History History of anterior cruciate ligament surgery History of hip surgery Family History Grandfather Heart disease Maternal- Heart Attack Social History household members: spouse Smoking Status: Current some day smoker alcohol intake: never substance use type: marijuana HPI LEFT KNEE Details: This documentation accurately reflects the service provided and the decisions made by me, Dr. Claus Bar MD 07/17/23 0924. Part of today?s visit was documented by [ ], acting as scribe. KEYSHA GRANT is a 28 year old M here today for FU L knee pain and locking. lateral side pain. likes to do jiu jiutsi. no brace, or PT. rest, activity modification, no nsaids. Ortho Exam General General: Yes no acute distress Neurologic: Yes alert and Yes oriented x3 Psychologic: Yes reasonable and appropriate Supplemental Info [facility] Imaging Services [address] [place] [address] Lower Ext Joint Only (Routine) MR#: [id number] Acct: [id number] Name: KEYSHA GRANT Rep #: [id number] : 1995 M 28 From: Sidney Gallardo MD PCP: Dr. Can Reynolds MD Status: REG CLI Study: Lower Ext Joint Only (Routine) Date of Exam: 07/10/23 Exam# [id number] Ordering Dr: Claus Bar MD STUDY: MRI LEFT KNEE REASON FOR EXAM: Male, 28 years old. Painful knee. Assess meniscus tear. TECHNIQUE: Standardized fat and water weighted pulse sequences were obtained in all 3 orthogonal planes. COMPARISON: Left knee radiographs dated 06/26/2023. FINDINGS: Normal medial meniscus. Normal hyaline cartilage of the medial femorotibial compartment. Normal medial femoral condyle and tibial plateau. There is a minimal grade I MCL sprain with periligamentous edema (coronal T2 series 8 image 16). Normal distal semimembranosus, gracilis and semitendinosus tendons. There is a suspected tiny partial radial tear of the posterior horn of the lateral meniscus (coronal T2 series 8 image 22). Normal hyaline cartilage of the lateral femorotibial compartment. Normal lateral femoral condyle and tibial plateau. Normal proximal tibiofibular articulation. Normal lateral collateral (fibular) ligament. Normal popliteus tendon. Normal biceps femoris tendon. Normal anterior cruciate ligament (ACL). Normal posterior cruciate ligament (PCL). Normal congruent patellofemoral articulation. Normal hyaline cartilage of the patellofemoral compartment. Normal medial and lateral patellar retinaculum. Normal quadriceps tendon. Normal patellar tendon. Normal Hoffa''s fat pad. There is a small joint effusion. There is a tiny popliteal cyst. The soft tissues are unremarkable. The otherwise visualized osseous structures are unremarkable. MRI/Lower Ext Joint Only (Routine) IMPRESSION: Suspected tiny partial radial tear of the posterior horn of the lateral meniscus. Minimal grade I MCL sprain. Small joint effusion, with a tiny popliteal cyst. Electronically Signed: Sidney Gallardo MD at 12:01 EDT , Coding Level of Care Code Off vis,est,level 4 Diagnoses Tear of lateral meniscus of left knee S83.282A Tear of medial collateral ligament of left knee S83.412A Left knee pain M25.562 Effusion, left knee M25.462 Assessment and Plan Assessment and Plan (1) Tear of lateral meniscus of left knee: Status: Acute Plan: 28-year-old man with left knee pain on the lateral side with persistent mechanical symptoms and MRI evidence of a small radial tear near the posterior horn lateral meniscus. This does seem to be causing some pain and problems. He also has an MCL sprain and a small effusion likely from the tear. The medial side of the knee felt unstable and I do not think that is causing him symptoms but the lateral meniscus tear does seem to be causing some persistent symptoms. I explained the diagnosis prognosis different treatment options which include but not limited to rest ice anti-inflammatories active modification physical therapy cortisone injections as well as surgery. Patient is interested in proceeding with surgical management this has been ongoing over the last 2 to 3 months. Surgery would be in the form of left knee arthroscopy, lateral meniscus partial meniscectomy, possible repair. Smokes marijuana, increased surgery risks like infection and breathing problems. Like to proceed with surgery, explained the recovery, which would be up to 3 months if repair... he understands, no further questions or concerns. Pros and cons risks and benefits were discussed with the patient including but not limited to infection, pain, stiffness, bleeding, damage to surrounding structures, neurovascular injury, recurrence or retear, failure or wear of hardware or fixation, instability, fracture, deep vein thrombosis and pulmonary embolism, anesthetic risks, , patient dissatisfaction, need for further surgery and other risks. Patient understood and wished to proceed with surgery, and signed the informed consent documentation. [facility] Medical History Marijuana use Heartburn Former smoker Effusion, left knee Tear of medial collateral ligament of left knee Tear of lateral meniscus of left knee Left knee pain Cefi-Elzmb-Zqgxbuo disease, bilateral ADHD Home Medications ?Medication ?Instructions ?Recorded ?Last Taken ?Type dextroamphetamine-amphetamine 5 mg 5 mg PO DAILY PRN ADHD 06/26/23 Unknown History tablet (Adderall) dextroamphetamine-amphetamine ER 15 mg PO DAILY 06/26/23 Unknown History 15 mg 24hr capsule,extend release Allergy/AdvReac Type Severity Reaction Status Date / Time morphine Allergy Vomiting Verified 11/08/23 06:37 Family History Grandfather Heart disease Maternal- Heart Attack Surgical History History of repair of ACL History of anterior cruciate ligament surgery History of hip surgery Social History household members: spouse Smoking Status: Never smoker alcohol intake: never substance use type: marijuana Vital Signs Vital Signs Vital Signs: 11/08/23 06:38 11/08/23 06:38 Temperature 97.9 F Temperature Source Temporal Pulse Rate 84 Respiratory Rate 16 Respiratory Pattern Normal Blood Pressure 145/87 H Blood Pressure Mean 106 Blood Pressure Source Monitor Blood Pressure Position Sitting Blood Pressure Location Left Arm Pulse Ox 97 Oxygen Delivery Method Room Air Weight Weight: 255 lb 11.779 oz Body Mass Index (BMI) 35.6
[2023-11-08] MEDS: Cefazolin 2 GM in 0.9% Normal Saline (100mL Bag) 100 ML IV (07:22)
[2023-11-08] MEDS: Epinephrine (1 mg/ml) 1 MG/ML VIAL (07:52)
[2023-11-08] MEDS: Bupivacaine 0.25% 30 ML Vial (08:12)
--- NOTE | 2023-11-08 08:21 | OP.PCM_ITS ---
Problems Associated Problem List Diagnoses (1) Tear of lateral meniscus of left knee: (2) Left knee pain: Report of Operation Date of Procedure: 11/08/23 Pre-Operative Diagnosis: L knee LM tear Post-Operative Diagnosis: same Surgery/Procedure Performed:: L knee arthroscopy, LM repair Surgeon: Claus Bar Type of Anesthesia: General and Local Anesthesiologist: Dany Nugent Estimated Blood Loss (mL): 20 Description of Procedure: Patient brought the operating room theater. Placed supine on the table. General anesthesia induced. 2 g IV Ancef administered prior to the start of the procedure. All bony prominences padded. SCD on the nonoperative leg. Stress positioner to the patient's left leg. Tourniquet applied 34 inches appropriately padded to the left thigh. Lower extremity prepped and draped in the usual sterile fashion with chlorhexidine-based prep solution allowing over 3 minutes drying time prior to draping. Preoperative timeout performed to confirm the site patient and the surgery. Began by elevating the limb inflated the tourniquet to 250 mmHg. You standard anterolateral anteromedial arthroscopy portals. Did a full diagnostic arthroscopy. There was a medial sided plica I gently debrided this. Patellofemoral cartilage appeared normal. Normal ACL and PCL appearance. Medial compartment appeared normal the medial meniscus had a normal appearance stable to probing. Pain to the lateral compartment with the leg in kryfzl-yz-tmnr position. There was some grade 3 focal chondral changes near the posterior horn of the lateral meniscus, about [id number] on tibia side only. There is no obvious radial tear as noted on the MRI however there did appear to be a vertically oriented tear of the posterior horn, 50% thickness, the root was intact. This was a partial- thickness tear with some mild instability in that area, able to pull it anteriorly with the probe, potentially contributing to the focal wear of the cartilage in that area therefore elected to do repair. I used the meniscal rasp to stimulate healing in that area. I used Arthrex all inside fiber stitch implants. I placed 2 vertical mattress sutures in that area. The meniscus was stable to probing afterwards more centered over that cartilage wear area with less of a wrinkle in the mid body undersurface of the lateral meniscus. Arthroscopy pictures taken and saved throughout the case. Case terminated wound thoroughly irrigated. 10 cc of core percent bupivacaine instilled in around the portal sites. Closed the lateral portal with a 3-0 Monocryl suture. Skin cleaned with wet and dry dressing followed application of Adaptic 4 x 4 gauze ABD dressing loosely wrapped Wilton bandage and hinged knee brace locked in full extension. Patient woken up from a general anesthetic transferred off the operating table taken postanesthetic care unit in stable condition. Plan for the patient weightbearing as tolerated in full extension passive range of motion 0 to 90 degrees with physical therapy discharge home according to day surgery criteria. Will start ASA 81 mg p.o. twice daily for a month postoperatively for VTE prophylaxis. cpt 80569? Complications none Admit VTE Documentation VTE Present on Admission: No VTE Mechan Device Prophylaxis: SCD's VTE Pharm Prophylaxis ordered?: Yes Procedures Musculoskeletal [id number]: Other Procedure See Report
--- NOTE | 2023-11-08 08:28 | PCM.POST.ANE ---
Anesthesia: Postop Eval I Current Vital Signs Temperature: 97.5 F Pulse Rate: 82 Blood Pressure: 133/94 Respiratory Rate: 16 Pulse Ox: 96 Oxygen Delivery Method: Room Air Assessment Airway patent: Yes Spontaneous unlabored respirations: Yes Mental status: Awake and Calm nausea: No Vomiting: No Anesthesia Complication: No Fluid Hydration Crystalloid volume administer (ml): 800 Total IV fluid infused: 800 Progress Note Anesthesia document: Postop Eval 1 completed: Yes
--- NOTE | 2023-11-08 08:30 | EX.PCM.DISCH ---
Discharge Instructions Diet Discharge Diet: No restrictions Activity Discharge Activity: Use Crutches Ice area for (Minutes): 10 Weight Bearing Status: Weight bearing as tolerated Lifting Restrictions: with brace on locked straight and crutches Keep extremity elevated above heart level: Operative Extremity Dressing / Incision Call your doctor if your incision/area has: Continuous Slow Oozing, Sudden Increased Bleeding, Increased Pain/ Swelling, Increased Redness, Foul Smelling Discharge and Swelling at the incision site Remove Dressing in: leave in place till F/U Follow Up Care Please Follow Up With: Claus Bar MD When: next week Test Results: Test results from this visit will be discussed in further detail at your follow-up appointment, if applicable. Discharge Plan Admission Attending Provider: Claus Bar Primary Care Provider: Can Reynolds Instructions Print Language: Hong Konger Discharge Orders/Prescriptions Prescriptions: New oxycodone-acetaminophen [Endocet] 5-325 mg tablet 1 tab PO Q4H MDD 6 PRN (Reason: pain) 5 Days Qty: 20 0RF aspirin 81 mg tablet,delayed release (DR/EC) 81 mg PO BID MDD 2 30 Days Qty: 60 0RF No Action dextroamphetamine-amphetamine 15 mg capsule,extended release 24hr 15 mg PO DAILY Patient Comments: TAKE ONE CAPSULE BY MOUTH EVERY DAY dextroamphetamine-amphetamine [Adderall] 5 mg tablet 5 mg PO DAILY PRN (Reason: ADHD) Referrals / Follow Up: Claus Bar MD [Med Staff - Active Staff] - Can Reynolds MD [Primary Care Provider] - Disposition Disposition (needs filled in before D/C Order can be placed): Home, Self Care
--- NOTE | 2023-11-08 08:42 | POSTOPAN2_ITS ---
Anesthesia Postop Eval I Sum Postop Eval Completion status Anesthesia document: Postop Eval 1 completed: Yes Anesthesia Postop Eval I Summary Anesthesia Postop Eval I Summary: Anesthesia Postop Eval I: Assessment Summary Airway patent Yes 11/08/23 08:28 HOOP DRIVING MACHINE OPERATOR [email or web address] Spontaneous unlabored Yes 11/08/23 08:28 HOOP DRIVING MACHINE OPERATOR [email or web address].[email or web address] respirations Mental status Awake,Calm 11/08/23 08:28 HOOP DRIVING MACHINE OPERATOR [email or web address].[email or web address] nausea No 11/08/23 08:28 HOOP DRIVING MACHINE OPERATOR [email or web address] Vomiting No 11/08/23 08:28 HOOP DRIVING MACHINE OPERATOR [email or web address] Anesthesia Postop Eval I: Fluid Summary Crystalloid volume administer 800 11/08/23 08:28 HOOP DRIVING MACHINE OPERATOR [email or web address].[email or web address] (ml) Colloids volume administered ( ml) Blood Product volume administered (ml) Total IV fluid infused 800 11/08/23 08:28 HOOP DRIVING MACHINE OPERATOR [email or web address] Anesthesia Postop Eval I: Summary Notes Anesthesia Complication No 11/08/23 08:28 HOOP DRIVING MACHINE OPERATOR [email or web address] Anesthesia Complication Comment: Post-operative progress note Anesthesia: Postop Eval II Evaluation Mental status: Awake Pain Level: 0 nausea: No Vomiting: No Complications Anesthesia Complication: No
--- NOTE | 2023-11-08 08:42 | PCM.POSTANE2 ---
Anesthesia Postop Eval I Sum Postop Eval Completion status Anesthesia document: Postop Eval 1 completed: Yes Anesthesia Postop Eval I Summary Anesthesia Postop Eval I Summary: Anesthesia Postop Eval I: Assessment Summary Airway patent Yes 11/08/23 08:28 [email or web address] Spontaneous unlabored Yes 11/08/23 08:28 [email or web address] respirations Mental status Awake,Calm 11/08/23 08:28 [email or web address] nausea No 11/08/23 08:28 [email or web address].[email or web address] Vomiting No 11/08/23 08:28 [email or web address] Anesthesia Postop Eval I: Fluid Summary Crystalloid volume administer 800 11/08/23 08:28 [email or web address] (ml) Colloids volume administered ( ml) Blood Product volume administered (ml) Total IV fluid infused 800 11/08/23 08:28 [email or web address] Anesthesia Postop Eval I: Summary Notes Anesthesia Complication No 11/08/23 08:28 [email or web address] Anesthesia Complication Comment: Post-operative progress note Anesthesia: Postop Eval II Evaluation Mental status: Awake Pain Level: 0 nausea: No Vomiting: No Complications Anesthesia Complication: No
[2023-11-08] MEDS: HYDROcodone Bitartrate/Apap 5/325 Tablet PO ×2 (09:46→10:32)
== END 2023-11-08 10:38 | disposition home or self-care (01) ==
LOC: SDC 05:46 → AC 05:48
PROVIDERS: PCP Family Medicine; Referring Provider Orthopaedic Surgery Sports Medicine; Visit Provider Orthopaedic Surgery Sports Medicine
PROC: (CPT 29870; principal; 2023-11-08 07:10)
DX: S83.282A Other tear of lateral meniscus, current injury, left knee, initial encounter (principal); S83.412A Sprain of medial collateral ligament of left knee, initial encounter; M25.462 Effusion, left knee; F12.90 Cannabis use, unspecified, uncomplicated; F17.200 Nicotine dependence, unspecified, uncomplicated; X58.XXXA Exposure to other specified factors, initial encounter
CPT/HCPCS: 29882; 01400; J7120; J2405

== ENCOUNTER 2023-11-17 15:13 | Emergency (ER) | payer OTHER, SELFPAY ==
[2023-11-17 15:14] VITALS: BP 132/93; PULSE 86; RESP 16; TEMP 35.6; O2SAT 100; BMI 35.6
--- NOTE | 2023-11-17 15:29 | VDLE_ITS ---
Reason For Study: Right leg pain RIGHT GSV is normal. CFV is compressible, spontaneous, phasic, competent and demonstrates normal augmentation. FV is compressible, spontaneous, phasic, competent and demonstrates normal augmentation. POP V is compressible, spontaneous, phasic, competent and demonstrates normal augmentation. T/P Trunk is compressible. PTV is compressible. RT PerV is compressible. Procedure This is a venous duplex using B-mode, color flow and spectral Doppler. Exam performed portable in ED. A preliminary report was called and/or faxed to Dr. Bates. VL/Venous Duplex US, Unilateral Interpretation Summary Deep veins of the right lower extremity are patent and compressible segmentally . There is no evidence of right lower extremity deep vein thrombosis. The right great sapheno us vein appears patent and compressible segmentally. Ordering Physician: Kala Gonzalez Referring Physician: Can Reynolds Performed By: Evelina Bell RVT
--- NOTE | 2023-11-17 15:32 | EDS_ITS ---
HPI <OSCAR Argueta - Last Filed: 11/17/23 16:10> History of Present Illness Chief Complaint: Lower Extremity Injury Narrative Narrative: Patient presenting today with concerns for DVT to his right lower extremity. He reports that he had surgery on his left meniscus on 11/[address] Bar. A few days after the surgery he noticed pain in his right calf, he has been using crutches and bearing more weight onto his right leg and thinks he could have may be strained his calf muscle but does have a family history of blood clots and wanted to be safe. He denies any chest pain or shortness of breath. He denies any personal history of blood clots. [facility] <OSCAR Argueta - Last Filed: 11/17/23 16:10> [facility] Medical History Marijuana use Heartburn Former smoker Effusion, left knee Tear of medial collateral ligament of left knee Tear of lateral meniscus of left knee Left knee pain Cvyu-Ytlfi-Mgttcun disease, bilateral ADHD Home Medications ?Medication ?Instructions ?Recorded ?Last Taken ?Type dextroamphetamine-amphetamine 5 mg 5 mg PO DAILY PRN ADHD 06/26/23 Unknown History tablet (Adderall) dextroamphetamine-amphetamine ER 15 mg PO DAILY 06/26/23 Unknown History 15 mg 24hr capsule,extend release aspirin 81 mg tablet,delayed 81 mg PO BID vte after surgery 1 11/08/23 Unknown Rx release month #60 tabs oxycodone-acetaminophen 5 mg-325 1 tab PO Q4H PRN pain 5 days #20 11/08/23 Unknown Rx mg tablet (Endocet) tabs Allergy/AdvReac Type Severity Reaction Status Date / Time morphine Allergy Vomiting Verified 11/17/23 15:13 Family History Grandfather Heart disease Maternal- Heart Attack Surgical History History of repair of ACL History of anterior cruciate ligament surgery History of hip surgery Social History household members: spouse Smoking Status: Never smoker alcohol intake: never substance use type: marijuana ROS <OSCAR Argueta - Last Filed: 11/17/23 16:10> ROS ED Constitutional Constitutional ED: Denies chills or fever(s) Cardiovascular Cardiovascular: Denies chest pain Respiratory/Chest Respiratory/Chest: Denies dyspnea Musculoskeletal Musculoskeletal: Reports myalgias Integumentary Denies rash Neurologic Neurologic: Denies paresthesias or weakness EXAM <OSCAR Argueta - Last Filed: 11/17/23 16:10> Physical Exam Const Vital Signs: 11/17/23 15:14 Temperature 96.0 F L Temperature Source Temporal Pulse Rate 86 Respiratory Rate 16 Blood Pressure 132/93 H Blood Pressure Mean 106 Pulse Ox 100 Positive well nourished, well developed and no apparent distress General Appearance ED: well developed HEENT Reports normocephalic and head/scalp atraumatic Mouth ED: Yes moist mucous membranes normal Eyes PERRL and EOMs intact bilaterally Neck full ROM and supple Chest Wall inspection of chest normal Resp normal respiratory effort and clear to auscultation bilaterally Cardio regular rate and regular rhythm Back/Spine normal ROM Extremity normal to inspection Extremity Narrative: Negative Homans' sign on the right, no edema to the bilateral lower extremities, no erythema, no palpable cord, no pain to palpation to the right calf. Right DP pulse 2+, good capillary refill, sensation intact. Knee immobilizer on the left. Neuro oriented x3, CN's II-XII intact bilaterally, moves all extremities, no focal motor deficits and no sensory deficits noted Sensorium / Orientation: awake and alert Psych mental status grossly normal and thought process normal Skin no rashes or lesions noted and no wounds <Dr. Raliegh Bates DO - Last Filed: 11/17/23 16:09> Physical Exam Const Vital Signs: 11/17/23 15:14 Temperature 96.0 F L Temperature Source Temporal Pulse Rate 86 Respiratory Rate 16 Blood Pressure 132/93 H Blood Pressure Mean 106 Pulse Ox 100 MDM <OSCAR Argueta - Last Filed: 11/17/23 16:10> [facility] Narrative Medical decision making narrative: Patient presenting today with concerns for DVT to his right lower extremity, he has had pain in his right calf that started a few days after his left meniscus surgery. He has no history of DVTs. He has a negative Homans' sign, no erythema, edema, palpable cord, or abnormality to the bilateral lower extremities. Venous duplex ultrasound obtained of the right lower extremity to rule out DVT and is negative. Pain is likely due to a muscle strain of his right calf from bearing more weight due to his recent left knee surgery. He has also been ambulating with crutches. Patient will be discharged home in stable condition. <Dr. Raleigh Bates, DO - Last Filed: 11/17/23 16:09> [facility] Narrative Medical decision making narrative: Differential diagnosis includes lymphedema preoperative swelling DVT lymphangitis superficial thrombophlebitis History & Record Review Discussion w/independent historian: Patient and Significant other Treatment and Re-Evaluation Narrative: I have personally performed a face to face assessment of the patient and have reviewed the KIRSTEN Note. I performed a substantive portion of the visit including all aspects of the following. My farley findings include: History is postoperative meniscal repair 28-year-old male presenting with concern for DVT of the left leg. Patient spoke with his surgeon was referred to the emergency department. There is a familial history of DVT. Exam is mild swelling leg in a brace no palpable cords or evidence of superficial thrombophlebitis. No lymphangitis. Neurovascular intact distal. Medical Decison Making duplex ultrasound is negative for DVT. He will be dis charged home with continued postoperative care. Discharge Plan Triage Chief Complaint: Lower Extremity Injury ED Midlevel Provider: Kala Gonzalez ED Provider: Raleigh Bates Dx/Rx/DC Orders Clinical Impression: Strain of right calf muscle Instructions: ED Muscle Strain, Extremity Prescriptions: No Action dextroamphetamine-amphetamine 15 mg capsule,extended release 24hr 15 mg PO DAILY Patient Comments: TAKE ONE CAPSULE BY MOUTH EVERY DAY dextroamphetamine-amphetamine [Adderall] 5 mg tablet 5 mg PO DAILY PRN (Reason: ADHD) oxycodone-acetaminophen [Endocet] 5-325 mg tablet 1 tab PO Q4H MDD 6 PRN (Reason: pain) 5 Days Qty: 20 0RF aspirin 81 mg tablet,delayed release (DR/EC) 81 mg PO BID MDD 2 30 Days Qty: 60 0RF Primary Care Provider: Can Reynolds Referrals: Can Reynolds MD [Primary Care Provider] - 1 Week if not improving Activity Restrictions/Additional Instructions: Follow-up with your PCP and return for any worsening of your symptoms. Print Language: South African Disposition Disposition: Home, Self Care
== END 2023-11-17 16:13 | disposition home or self-care (01) ==
PROVIDERS: Emergency Provider Emergency Medicine; PCP Family Medicine; Visit Provider Emergency Medicine
DX: S86.111A Strain of other muscle(s) and tendon(s) of posterior muscle group at lower leg level, right leg, initial encounter (principal); X58.XXXA Exposure to other specified factors, initial encounter; Z87.891 Personal history of nicotine dependence; F90.9 Attention-deficit hyperactivity disorder, unspecified type; Z79.899 Other long term (current) drug therapy; M79.661 Pain in right lower leg
CPT/HCPCS: 93971; 99282

== ENCOUNTER 2023-11-21 15:11 | Outpatient (RCR) | payer OTHER, SELFPAY ==
--- NOTE | 2023-11-21 16:35 | HP.PTEVAL_ITS ---
Patient's Visit Information Visit Information Visit Information: KEYSHA GRANT is a 28 year old M referred to Physical Therapy by Dr. Claus Bar MD with a diagnosis of Right Meniscal Tear 11/08/23. Date of Evaluation: 11/21/23 Physical Therapist: Paris Frias DPT Visit Plan Frequency: 2x /Week Duration: 6 Months Plan: Hold until WB status change will work on ROM and quad strength at home then 1-2x a week for exercise progression through meniscal protocol HEP given IE: extension ex, flexion to 90 degrees, quad sets, TKE, SLR Subjective Subjective: Left meniscal repair- November 08, [address] Bar- he saw him today- incision looks good- bend it how PT wants you too- as long as its in the brace and its straight you are allowed to put weight on it and he is allowed to switch to a cane as he wants to. He wants him to stay in the brace. Worst: 3- 4/10 thats a quick pain. Agg: bending it, straightening it. Best: 0/10 Eases: sit down, elevate, ice. Pain is located in the knee cap area- no pain that radiates. He has Leg Calves Perthes and broke his femur snow boarding so he has issues in his left. No N/T in the left LE. Sleep: not too much- in the brace. Hurt it doing jiujitsu- kept getting worse for about a year- he does normal activities. 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 PMHx: Leg Calves Perthes, Right ACL/Meniscus/Meniscus over 10 years ago Meds: adderol, asprin Objective Objective: Posture: fair throughout Gait: axillary crutches- partial weight bearing- step through gait pattern Observation: TROM brace -10-90 degrees- locked in extension- incisoin healing well no s/s of infection ROM: 15 degrees from extension to 90 degrees Strength: Hip: 4/5 mild lag with SLR, Knee: Flexion: 15 Extn: 10 Ankle: 5/5 Girth: Patella: 37 cm 6 above: 53 cm 6 below: 37 cm Palpation: tender along medial and lateral joint line Flex: Gastroc: mod Hamstring: severe Balance/Special Test Scores Lower Extremity Functional Score: 29 Goals Goal 1:: Patient will be I with HEP and progression Goal Time Frame: 4-6 Weeks Goal 2:: Patient will ambulate >150 feet with a normalized gait pattern and no AD Goal Time Frame: 4-6 Weeks Goal 3:: Patient will asc/desc 8 stairs recip with no HR Goal Time Frame: 4-6 Weeks Goal 4:: Patient will demo 0-135 degrees of ROM Goal Time Frame: 4-6 Weeks Goal 5:: Patient will report 80% improvement Goal Time Frame: 8-12 Weeks Goal 6:: Patient will have equal to 1 cm girth 6 above patella Goal Time Frame: 4-6 Weeks Rehabilitation Potential Physical Therapy Diagnosis: Patient presents s/p right meniscal repair - he has decreased ROM, LE and core strength/stabilization, flex and muscular endurance leading to abnormal gait and increased pain with ADL's. Rehabilitation Potential: Good Anticipated Interventions Patient/Client Instruction: Educate patient on: Benefits of Fitness Program Therapeutic Exercise to Include: Strength training, Endurance training, Balance training, Coordination, Agility training, Body mechanics, Postural training, Flexibilty training, Gait and locomotor training, Neuromotor development, Passive ROM, Active ROM, Dynamic Lumbar Stabilization and Scapular Strength/Stabilization TENS: Yes Cryotherapy (ice pack, ice massage): Yes Thermo therapy (hot pack): Yes Text: Thank you for the opportunity to evaluate your patient. For Medicare and Medicare HMO plans, please review the plan of care and approve it. It will need to be FAXED BACK to us at [phone] for Medicare purposes. For Medicare only, by signing this I certify the plan of care. Please let me know if there are questions or concerns regarding this plan of care. Physician Signature: Date:
== END 2023-11-21 19:00 | disposition home or self-care (01) ==
LOC: PT 15:11
PROVIDERS: PCP Family Medicine; Referring Provider Orthopaedic Surgery Sports Medicine; Visit Provider Orthopaedic Surgery Sports Medicine
DX: S83.282D Other tear of lateral meniscus, current injury, left knee, subsequent encounter (principal)
CPT/HCPCS: 97162

== ENCOUNTER 2023-11-29 01:29 | Emergency (ER) | payer OTHER, SELFPAY ==
[2023-11-29 01:30] VITALS: BP 136/46; PULSE 81; RESP 16; TEMP 36.9; O2SAT 96; BMI 35.9
--- NOTE | 2023-11-29 02:05 | EX.ED.DYSGE1 ---
HPI History of Present Illness Chief Complaint: Lower Extremity Injury Informant: patient and spouse/S.O. Narrative Narrative: Patient is a 28-year-old male with past medical history of ADHD and recent surgical procedure secondary to a lateral meniscus tear of the left knee. He states that he has been wearing a brace and not moving his knee any significant amount secondary to his recent procedure. He states his evening he noticed some swelling and redness to the posterior aspect of his calf/knee. He states that he has family members who have had a blood clot in with his recent risk factors he was concerned for this and therefore comes in for evaluation. [facility] Medical History Marijuana use Heartburn Former smoker Effusion, left knee Tear of medial collateral ligament of left knee Tear of lateral meniscus of left knee Left knee pain Rcmg-Guskq-Stgicng disease, bilateral ADHD Home Medications ?Medication ?Instructions ?Recorded ?Last Taken ?Type dextroamphetamine-amphetamine 5 mg 5 mg PO DAILY PRN ADHD 06/26/23 Unknown History tablet (Adderall) aspirin 81 mg tablet,delayed 81 mg PO BID vte after surgery 1 11/08/23 Unknown Rx release month #60 tabs Allergy/AdvReac Type Severity Reaction Status Date / Time morphine Allergy Vomiting Verified 11/29/23 01:34 Family History Grandfather Heart disease Maternal- Heart Attack Surgical History History of repair of ACL History of anterior cruciate ligament surgery History of hip surgery Social History household members: spouse Smoking Status: Never smoker alcohol intake: never substance use type: marijuana ROS ROS ED Constitutional Constitutional ED: Denies chills or fever(s) ENT ENT ED: Denies sore throat Cardiovascular Cardiovascular: Denies chest pain, palpitations or racing heartbeat Respiratory/Chest Respiratory/Chest: Denies cough or dyspnea Gastrointestinal Gastrointestinal: Denies abdominal pain, diarrhea, nausea or vomiting Genitourinary Genitourinary ED: Denies dysuria Musculoskeletal Musculoskeletal: Reports other Details: Positive left leg pain Integumentary Reports rash Neurologic Neurologic: Denies headache(s) Hematologic/Lymphatic Hematologic/Lymphatic: Denies easy bleeding or easy bruising Allergic/Immunologic Allergic/Immunologic ED: Denies mouth swelling or tongue swelling EXAM Physical Exam Const Vital Signs: 11/29/23 01:30 Temperature 98.4 F Temperature Source Temporal Pulse Rate 81 Respiratory Rate 16 Blood Pressure 136/46 H Blood Pressure Mean 76 Pulse Ox 96 Oxygen Delivery Method Room Air Positive well nourished and well developed General Appearance ED: well developed HEENT HEENT Narrative: Normocephalic atraumatic Eyes PERRL and EOMs intact bilaterally General Eye ED: Negative for pale conjunctiva or scleral icterus Neck supple Resp normal respiratory effort and clear to auscultation bilaterally Cardio regular rate and regular rhythm Rate: other Other Details: Heart is regular rate and rhythm without murmurs rubs or gallops Radial and carotid pulses are equal and symmetric Extremity Extremity Narrative: Left lower extremity is neurovascularly intact. Patient has surgical wounds to the anterior aspect of the left knee that are clean dry and intact and consistent with recent meniscal surgery repair. There is faint asymmetric edema of the left lower leg compared to right. Negative Homans' sign bilaterally. Patient has a 1 x 2 cm red blanchable raised area consistent with a urticarial lesion along the posterior aspect of the left upper calf/popliteal fossa. No lymphangitic streaking or discharge present. No induration or fluctuance. Neuro oriented x3, CN's II-XII intact bilaterally and no sensory deficits noted Sensorium / Orientation: alert Psych mental status grossly normal Skin Skin Narrative: Urticarial-like lesion to the posterior calf/knee on left as documented above Also postsurgical wounds that are clean dry and intact without secondary findings to suggest infection MDM MDM MDM Narrative Medical decision making narrative: Patient arrived to the ER with stable vitals. He did have a recent surgical procedure but otherwise did not have first-degree relatives with DVT/PE he does not take supplemental hormones nor is there been any travel. His exam is consistent with an urticarial lesion as it is singular in nature erythematous and blanchable and there is no true asymmetric edema or Homans' sign present of the left leg compared to right. Therefore at this time I do not feel there is a need for D-dimer and based on the patient presenting at this time a night I cannot perform a venous duplex. I will give the patient an outpatient order form to have 1 done but as I have low concern that this is a DVT I do not feel there is any need for prophylactic Lovenox. Patient was informed of this and does agree with the plan of care and is otherwise safe for discharge History & Record Review Discussion w/independent historian: Patient and Significant other Discharge Plan Triage Chief Complaint: Lower Extremity Injury ED Provider: Amanuel Lilly Dx/Rx/DC Orders Clinical Impression: Urticaria, Tear of lateral meniscus of left knee, ADHD Instructions: ED Hives (Adult) Prescriptions: No Action dextroamphetamine-amphetamine [Adderall] 5 mg tablet 5 mg PO DAILY PRN (Reason: ADHD) aspirin 81 mg tablet,delayed release (DR/EC) 81 mg PO BID MDD 2 30 Days Qty: 60 0RF Other Ambulatory Orders: Venous Duplex US, Unilateral (Stat) Facility: [facility] - Location: [facility] Ordered By: Dr. Amanuel Lilly Primary Care Provider: Can Reynolds Referrals: Can Reynolds MD [Primary Care Provider] - Activity Restrictions/Additional Instructions: Your exam is consistent with an inflammatory process causing the redness and swelling. However secondary to your recent surgery and family history please obtain your outpatient venous duplex to ensure no DVT. Return to the ER should you have any further concerns Print Language: Kiswahili Disposition Disposition: Home, Self Care Discharge Date/Time: 11/29/23 02:12
[2023-11-29 02:11] VITALS: BP 132/81; PULSE 81; RESP 16; TEMP 36.6; O2SAT 96
== END 2023-11-29 02:12 | disposition home or self-care (01) ==
PROVIDERS: Emergency Provider Emergency Medicine; PCP Family Medicine; Visit Provider Emergency Medicine
DX: L50.9 Urticaria, unspecified (principal); S83.282A Other tear of lateral meniscus, current injury, left knee, initial encounter; X58.XXXA Exposure to other specified factors, initial encounter; F90.9 Attention-deficit hyperactivity disorder, unspecified type; Z79.899 Other long term (current) drug therapy
CPT/HCPCS: 99282

== ENCOUNTER 2024-05-07 17:36 | Emergency (ER) | payer OTHER, SELFPAY ==
[2024-05-07 17:37] VITALS: BP 142/88; PULSE 81; RESP 16; TEMP 36.9; O2SAT 98; BMI 38.7
--- NOTE | 2024-05-07 18:33 | ED.RN ---
pt states they will try to come back in morning.
== END 2024-05-07 18:31 | disposition left against medical advice (07) ==
LOC: ED 18:40
DX: Z00.00 Encounter for general adult medical examination without abnormal findings (principal)

== ENCOUNTER → 2024-06-24 | Outpatient (CLI) | payer BC, SELFPAY ==
--- NOTE | 2024-06-24 08:13 | US_ITS ---
PROCEDURE: ABDOMEN LIMITED REASON FOR EXAM: RUQ PAIN, INCLUDE PANCREAS COMPARISON: None FINDINGS: Slightly exam limited by shadowing bowel gas. Liver: Echogenic. Likely focal fatty sparing along the gallbladder fossa. 18.1 cm in length. Gallbladder: No visualized stones, sludge, wall thickening or tenderness. Reportedly, sonographic Campos's sign was negative. Common bile duct: Unremarkable. CBD measures 3 mm. Pancreas: Visualized portions are grossly unremarkable. Right kidney: Unremarkable. 10.5 cm in length. Other: No right upper quadrant ascites. US/Abdomen Limited IMPRESSION: 1. No visualized cholelithiasis or findings to suggest cholecystitis. If unexp lained symptoms persist, consider CT. 2. Likely hepatic steatosis. Correlate for clinical and laboratory evidence of chronic liver disease. 3. Additional description as above. Reading Location: [id number]
== END | disposition home or self-care (01) ==
LOC: US 08:11
PROVIDERS: PCP Family Medicine; Referring Provider Family Medicine; Visit Provider Family Medicine
DX: R10.11 Right upper quadrant pain (principal)
CPT/HCPCS: 76705

== ENCOUNTER → 2024-12-05 | Outpatient (CLI) | payer BC, SELFPAY ==
--- NOTE | 2024-12-05 07:13 | CT_ITS ---
PROCEDURE: SOFT TISSUE NECK WITH CONTRAST 12/05/2024 REASON FOR EXAM: R NECK MASS TECHNIQUE: SOFT TISSUE NECK WITH CONTRAST CONTRAST: 96 cc VOLUME: Isovue 370 mL One or more dose reduction techniques were used (e.g., Automated exposure control, adjustment of the mA and/or kV according to patient size, use of iterative reconstruction technique). RADIATION DOSE SUMMARY: CTDlvol: 18.7 mGy DLP: 627 mGycm FINDINGS: The orbits appear symmetric. The nasopharynx is unremarkable. No parotid asymmetry. No submandibular abnormality. No asymmetry of the palatine tonsils or oral cavity. No asymmetry of the tongue base. No pathologically enlarged cervical lymph nodes are identified. Symmetric vocal folds. Symmetric thyroid. Normal thoracic inlet. Lung apices are clear. No visible neck masses. CT/Soft Tissue Neck WITH Contrast IMPRESSION: No acute abnormality with attention to the right neck Reading Location[facility]
== END | disposition home or self-care (01) ==
LOC: CT 07:12
PROVIDERS: PCP Family Medicine; Referring Provider Otolaryngology; Visit Provider Otolaryngology
DX: R22.1 Localized swelling, mass and lump, neck (principal)
CPT/HCPCS: 70491; Q9967